=== PATIENT | male | born 1990 | race African-American/Black ===

== ENCOUNTER 2019-10-12 12:48 | Emergency (ER) | payer OTHER, MEDICAID, SELFPAY ==
[2019-10-12 13:10] VITALS: BP 156/77; PULSE 77; RESP 24; TEMP 36.5; O2SAT 99
[2019-10-12 15:13] LABS: Bacteria Urine None Seen
[2019-10-12 15:14] LABS: Appearance Urine UA SL CLOUDY; Bilirubin Urine UA NEGATIVE (NEGATIVE); Color Urine UA YELLOW; Glucose Urine UA NEGATIVE (Negative); Ketones Urine UA NEGATIVE (NEGATIVE); Leukocyte Esterase Urine UA 1+ (NEGATIVE); Nitrite Urine UA NEGATIVE (Negative); Occult Blood Urine UA 3+ (Negative); Protein Urine UA NEGATIVE (Negative); Specific Gravity Urine UA 1.015 (1.000-1.035); Urobilinogen Urine UA 0.2 E.U./dL (0.2)
[2019-10-12 15:20] LABS: Culture Indicated Urine Cult Not Indicated; RBC Urine 5-10/HPF (0-5/HPF); Squamous Epithelial Cell Urine 5-10 /HPF (0-5/HPF); WBC Urine 1-5/HPF (0-5/HPF)
--- NOTE | 2019-10-12 16:46 | ED_ITS ---
HPI - Male Genitourinary <CESAR Hernandez - Last Filed: 10/12/19 21:10> General Chief complaint: Urogenital-Male Stated complaint: blood in urine Time Seen by Provider: 10/12/19 13:34 Source: patient Mode of arrival: Ambulatory History of Present Illness HPI Narrative: 29yo male with a history of obesity, presents to the emergency department for blood in his urine that he noticed this morning. Patient states he noticed a blood clot on the tip of his penis and a strain of blood clots in the toilet this morning. Patient denies any trauma to the area, penile discharge, fevers, chills, difficulty urinary eating, dysuria, abdominal plain, flank pain, or any other concerns. Patient states that he has never had this problem before. He recently lost approximately 100 lb in the past year and has been exercising more frequently. Patient states that he does not want to wait here much longer in would like to just follow up with his primary care provider tomorrow versus have more testing today. Patient denies any further noticeable blood clots in his urine this time. Related Data Home Medications Medication Instructions Recorded Confirmed loratadine [Claritin] 10 mg PO QDAY PRN #0 06/28/17 10/12/19 meloxicam 15 mg PO DAILY PRN 10/12/19 10/12/19 Allergies Allergy/AdvReac Type Severity Reaction Status Date / Time No Known Drug Allergies Allergy Verified 10/12/19 13:14 Review of Systems <CESAR Hernandez - Last Filed: 10/12/19 21:10> Review of Systems Narrative: REVIEW OF SYSTEMS: GENERAL: Denies fever, chills, malaise, or wt. loss. HENT: No head trauma, sore throat, or dysphagia. CARDIOVASCULAR: No chest pain, palpitations, or orthopnea. RESPIRATORY: No shortness of breath or cough. GASTROINTESTINAL: Denies abdominal pain. GENITOURINARY: No flank pain, urinary incontinence, hesitancy, frequency, or dysuria. Reports hematuria, see HPI. MUSCULOSKELETAL: No pain, weakness, or trauma. INTEGUMENTARY: No rash, lesions, or pruritus. NEURO: No numbness, tingling, memory loss, confusion, or headaches. PSYCH: No behavior or mood changes. Patient History <CESAR Hernandez - Last Filed: 10/12/19 21:10> Medical History Obesity (Acute) Social History Smoking Status: Never smoker Smoking Status: Never smoker Exam <CESAR Hernandez - Last Filed: 10/12/19 21:10> Initial Vital Signs Initial Vital Signs: Vital Signs Temperature 97.7 F 10/12/19 13:10 Pulse Rate 77 10/12/19 13:10 Respiratory Rate 24 10/12/19 13:10 Blood Pressure 156/77 H 10/12/19 13:10 Pulse Oximetry 99 10/12/19 13:10 PHYSICAL EXAMINATION: GENERAL: Well groomed, alert, and cooperative. Answers questions promptly and appropriately. Vital signs noted. HENT: Normocephalic, atraumatic. Hearing intact. Oral mucosa is pink and moist. EYES: Conjunctiva pink, sclera white, no periorbital swelling. CARDIOVASCULAR: S1 and S2 sounds normal. Regular rate and rhythm, no murmurs, clicks, or bruits. No pedal edema. RESPIRATORY: Normal respiratory rate, trachea midline, airway patent. No stridor, nasal flaring or accessory muscle use. Lungs are clear in all nelson without wheeze, rhonchi, or crackles. GASTROINTESTINAL: Bowel sounds normoactive. Abdomen is soft and non-tender. No organomegaly, no palpable masses. GENITALURINARY: No flank tenderness. MUSCULOSKELETAL: Normal gait and coordination. Equal tone and mass bilaterally. EXTREMITIES: CMS intact, no pedal edema. SKIN: Warm, dry, soft, appropriate color for ethnicity. No lesions, rashes, or wounds to visualized areas. NEURO: Alert and Oriented X 3. Good coordination. No ataxia, or sensory deficits, or cognitive issues. PSYCH: Appropriate affect and mood. <Diandra Monzon MD - Last Filed: 10/30/19 18:08> Initial Vital Signs Initial Vital Signs: Vital Signs Temperature 97.7 F 10/12/19 13:10 Pulse Rate 77 10/12/19 13:10 Respiratory Rate 24 10/12/19 13:10 Blood Pressure 156/77 H 10/12/19 13:10 Pulse Oximetry 99 10/12/19 13:10 Course <CESAR Hernandez - Last Filed: 10/12/19 21:10> Course Course Narrative: Patient declined labs and further workup, states he would rather follow up with primary care provider tomorrow. Orders Ordered: ED Orders 10/12/19 15:10 Urinalysis and Microscopic Stat Vital Signs Vital signs: Vital Signs - 8 hr 10/12/19 13:10 Temperature 97.7 F Pulse Rate 77 Respiratory Rate 24 Blood Pressure 156/77 H Pulse Oximetry 99 <Diandra Monzon MD - Last Filed: 10/30/19 18:08> Orders Ordered: ED Orders 10/12/19 15:10 Urinalysis and Microscopic Stat Vital Signs Vital signs: Vital Signs - 8 hr 10/12/19 13:10 Temperature 97.7 F Pulse Rate 77 Respiratory Rate 24 Blood Pressure 156/77 H Pulse Oximetry 99 MDM - Male Genitourinary <CESAR Hernandez - Last Filed: 10/12/19 21:10> Medical Records Attestation: I reviewed the patient's medical records. Lab Data Attestation: I reviewed the patient's lab results. Labs: Lab Results 10/12/19 Range/Units 15:10 Urine Color Yellow Urine Appearance Sl cloudy Urine pH 6.0 (4.5-8.0) Ur Specific [place] 1.015 (1.000-1.035) Urine Protein Negative (Negative) Urine Glucose (UA) Negative (Negative) g/dL Urine Ketones Negative (NEGATIVE) Urine Occult Blood 3+ H (Negative) Urine Nitrate Negative (Negative) Urine Bilirubin Negative (NEGATIVE) Urine Urobilinogen 0.2 (0.2) E.U./dL Ur Leukocyte Esterase 1+ H (NEGATIVE) Urine RBC 5-10/hpf H (0-5/HPF) Urine WBC 1-5/hpf (0-5/HPF) Ur Squamous Epith Cells 5-10 /hpf H (0-5/HPF) Urine Bacteria None seen (None) Ur Culture Indicated? Cult not indicated MDM Narrative Medical decision making narrative: 29-year-old male presenting to the emergency department for an episode of hematuria with clots. Urinalysis is positive for blood. I discussed that laboratory work is advised to check for renal function, depending on laboratory results imaging may be needed. Patient declined at this time stating that he would rather follow up with his primary care provider tomorrow for further testing as he does not want to waiting longer. We discussed return precautions for new or worsening symptoms such as inability to urinate, pain, excessive bleeding, or any other concerns. He agreed to plan of care verbalized understanding. <Diandra Monzon MD - Last Filed: 10/30/19 18:08> Lab Data Labs: Lab Results 10/12/19 Range/Units 15:10 Urine Color Yellow Urine Appearance Sl cloudy Urine pH 6.0 (4.5-8.0) Ur Specific [place] 1.015 (1.000-1.035) Urine Protein Negative (Negative) Urine Glucose (UA) Negative (Negative) g/dL Urine Ketones Negative (NEGATIVE) Urine Occult Blood 3+ H (Negative) Urine Nitrate Negative (Negative) Urine Bilirubin Negative (NEGATIVE) Urine Urobilinogen 0.2 (0.2) E.U./dL Ur Leukocyte Esterase 1+ H (NEGATIVE) Urine RBC 5-10/hpf H (0-5/HPF) Urine WBC 1-5/hpf (0-5/HPF) Ur Squamous Epith Cells 5-10 /hpf H (0-5/HPF) Urine Bacteria None seen (None) Ur Culture Indicated? Cult not indicated Discharge Plan Departure Patient Disposition: Home Clinical Impression: Hematuria Discharge Date/Time: 10/12/19 15:54 Instructions: DI for Hematuria Activity Restrictions/Additional Instructions: Thank you for entrusting me with your care today. As discussed, there is blood in your urine. I am unsure the exact cause of this. You declined laboratory work today in the ED but I do recommend calling your primary care provider and discussing possible laboratory blood work as scheduled tomorrow. I have also referred you to urologist, you can follow-up with them as well if they can see you sooner. See information listed below. Return to the emergency department any new or worsening symptoms such as pain, syncope, weakness, flank pain, vomiting, dizziness, or any other concerns. Prescriptions: No Action loratadine [Claritin] 10 MG tablet 10 mg PO QDAY PRN (Reason: allergies) Qty: 0 RF: 0 meloxicam 15 mg tablet 15 mg PO DAILY PRN (Reason: Pain (Scale Score 7-10)) RF: 0 Referrals: Miky Trammell MD [Non-Staff] - <Diandra Monzon MD - Last Filed: 10/30/19 18:08> Cosign ED Attending Cosignature Attestation: I was immediately available in the department for consultation throughout this patient's visit. I agree with documentation as above. Diandra Monzon MD
== END 2019-10-12 15:54 | disposition home or self-care (01) ==
PROVIDERS: Emergency Medicine; Emergency Provider Nurse Practitioner
DX: R31.0 Gross hematuria (principal); E66.9 Obesity, unspecified
CPT/HCPCS: 81001; 99281; 99282

== ENCOUNTER 2020-04-10 21:47 | Emergency (ER) | payer OTHER, MEDICAID, SELFPAY ==
[2020-04-10 21:52] VITALS: BP 174/104; PULSE 89; RESP 22; TEMP 36.9; O2SAT 95
--- NOTE | 2020-04-10 22:06 | ED_ITS ---
HPI - Extremity Injury (Lower) General Chief Complaint: Extremity Injury, Lower Stated Complaint: Plantir facitis flair up Time Seen by Provider: 04/10/20 22:03 Source: patient Mode of arrival: Ambulatory History of Present Illness HPI Narrative: 29-year-old gentleman with morbid obesity and an 8 year history of intermittent episodes of plantar fasciitis presents with worsening right foot pain. He notes that this episode started approximately 2 and half weeks ago after a hike. He noticed pain starting approximately [facility] through the hike and increasing. He has been using ice, rolling, stretching and has appropriate issues with enough padding under is heal to try and alleviate the issues. It is continuing to get worse. In the past he has had some success in working with Dr. Parish, podiatry. He states there is no overt trauma, falling or twisting to suggest any type of bony injury. He describes no fevers, cough, cold Vomiting, diarrhea, swelling, ulceration. Related Data Home Medications Medication Instructions Recorded Confirmed loratadine [Claritin] 10 mg PO QDAY PRN #0 06/28/17 10/12/19 meloxicam 15 mg PO DAILY PRN 10/12/19 10/12/19 Allergies Allergy/AdvReac Type Severity Reaction Status Date / Time No Known Drug Allergies Allergy Verified 10/12/19 13:14 Review of Systems Review of Systems ROS Unobtainable: All systems reviewed & are unremarkable except as noted in HPI and below Patient History Medical History (Updated 04/10/20 @ 23:04 by Diandra Monzon MD) Obesity Plantar fasciitis Social History Smoking Status: Never smoker Smoking Status: Never smoker Exam Narrative Exam Narrative: General: Alert appropriate in no acute distress Respiratory: Able to speak in full sentences, no obvious respiratory distress Skin: No obvious rashes, warm and dry Neurologic: Grossly intact no obvious asymmetries or abnormalities Psych, appropriate insight and affect, cooperative Extremity: Significant tenderness with pressure to the bottom of the right heel and with flexion of the foot. No edema and no ulceration Initial Vital Signs Initial Vital Signs: Vital Signs Temperature 98.4 F 04/10/20 21:52 Pulse Rate 89 04/10/20 21:52 Respiratory Rate 22 04/10/20 21:52 Blood Pressure 174/104 H 04/10/20 21:52 Pulse Oximetry 95 12/27/20 21:52 Procedures Orthopedic Splinting/Casting Right foot posterior splint: Side: right Lower Extremity Injury Location: foot Lower Extremity Immobilizer: posterior splint Other Orthopedic Equipment: other (Nighttime posterior splint for plantar fasciitis to keep the foot in flexion while asleep) Post splinting neuro exam: intact Post splinting vascular exam: intact Placed by: Provider Course Orders Ordered: Discontinued Medications Ketorolac Tromethamine (Ketorolac 60 Mg/2 Ml Vial) 30 mg IM NOW ONE Stop: 04/10/20 22:34 Last Admin: 04/10/20 22:55 Dose: 30 mg Documented by: Vital Signs Vital signs: Vital Signs - 8 hr 04/10/20 21:52 Temperature 98.4 F Pulse Rate 89 Respiratory Rate 22 Blood Pressure 174/104 H Pulse Oximetry 95 MDM - Extremity Injury (Lower) MDM Narrative Medical decision making narrative: 29-year-old gentleman with recurrent plantar fasciitis. Given a shot of Toradol at his request and a posterior splint is created to help with maintaining flexion while he is sleeping. He is referred back to Dr. Parish, podiatry for definitive care. He is safe for home discharge Discharge Plan Departure Patient Disposition: Home Clinical Impression: Plantar fasciitis Instructions: DI for Plantar Fasciitis Activity Restrictions/Additional Instructions: Thank you for coming in today Plantar fasciitis can be so frustrating to treat Using shoes that have very soft cushioning under the heel, ice, stretching and nonsteroidals are the mainstay of treatment. Using 400 mg of ibuprofen (2 [id number] pills) and 1 Tylenol every 6 hours can be very helpful in controlling pain. I have created a splint that you can use while sleeping. This helps your foot heel in the correct position so that the 1st step of the day does not break up all of the healing on the bottom of your foot I definitely encourage you to follow-up with Dr. Parish, podiatry, for definitive care. I wish you the best Prescriptions: No Action loratadine [Claritin] 10 MG tablet 10 mg PO QDAY PRN (Reason: allergies) Qty: 0 RF: 0 meloxicam 15 mg tablet 15 mg PO DAILY PRN (Reason: Pain (Scale Score 7-10)) RF: 0
[2020-04-10] MEDS: KETOROLAC 60 MG/2 ML VIAL 30 MG IM (22:55)
[2020-04-10 23:23] VITALS: TEMP 36.9
[2020-04-10 23:25] VITALS: BP 174/66; PULSE 76; RESP 22; O2SAT 98
== END 2020-04-10 23:23 | disposition home or self-care (01) ==
PROVIDERS: Emergency Provider Emergency Medicine
DX: M72.2 Plantar fascial fibromatosis (principal); E66.01 Morbid (severe) obesity due to excess calories
CPT/HCPCS: 96372; 99281; 99283; J1885

== ENCOUNTER 2023-03-29 13:45 | Outpatient (RCR) | payer OTHER, SELFPAY ==
--- NOTE | 2023-02-18 16:40 | PT.OIE ---
Current Diagnoses Other specified disorders of bone, upper arm (02/18/23) Strain of muscle, fascia and tendon of other parts of biceps, unspecified arm, initial encounter (02/18/23) Past Medical History (Last Updated 04/10/20 @ 23:04 by Diandra Monzon MD) Obesity Plantar fasciitis Visit Care Team Role Provider Type Eduar Chen DO Family Provider Non-Staff Primary Care Provider Specialty: Internal Medicine Address: [address] [facility], [place], [address] Email: Froy Alejandre MD Attending Provider Non-Staff Referring Provider Specialty: Orthopedic Surgery Address: [address] [facility] , [place], [address] Email: Physical Therapy Initial Evaluation PT-OP-A Visit Information Start: 02/18/23 15:37 Freq: Status: Active Protocol: Document 02/18/23 15:38 NM (Rec: 02/18/23 16:38 NM [id number]) Out-Patient Physical Therapy Visit Information Visit Information Visit Type Initial Evaluation Visit Start Time 13:45 Visit Stop Time 14:30 Total Visit Minutes 45 Visit Number 1 Evaluation Information Evaluation Date 02/18/23 PT-OP-B Current Condition Start: 02/18/23 15:37 Freq: Status: Active Protocol: Document 02/18/23 15:38 NM (Rec: 02/18/23 16:38 NM [id number]) Current Condition History of Current Condition Onset Date 12/2022 Current Complaints L arm weakness, pain with pushing/pulling, supination, kinesophobia History of Current Condition Pt was lifting in the gym at the time of the injury. He reports performing a 250# bicep curl with his L arm, which was too heavy causing his L elbow to forcefully straighten while holding the weight. The normal weight he can perform for a bicep curl is 230#. At the time of the injury, he felt a pop then a sharp pain in his L elbow; there was bruising around the L antecubital area. 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 He is currently unable to carry more than 10# or lift >10#. Prior Treatments and Tests Pt received a MRI indicating a near complete tear of his L biceps tendon near the elbow. He was referred by Dr. Alejandre. At this time, the pt is not planning on undergoing surgery to fix the L biceps tendon. Future Testing and Treatments Planned Pt is planning to follow up with another doctor for another opinion about surgery. 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 Functional Limitations- Recreation/ Pt is unable to lift weights Hobbies currently due to pain and weakness PT-OP-C Subjective Start: 02/18/23 15:37 Freq: Status: Active Protocol: Document 02/18/23 15:38 NM (Rec: 02/18/23 16:38 NM [id number]) Patient Questionnaires Quick Dash- Upper Extremity Quick Dash UE Impairment 40 to 59% Impaired (Score 40- 59) OP-PT Pain Assessment Pain Assessment Grid Paper Pain Assessment Grid Completed Yes Location L elbow Pain Location Details Anterior elbow, near the insertion of the biceps tendon Intensity 2 Scale Used Numeric (0 - 10) Description Aching,With Movement Frequency Occasional Pain Duration few seconds Pain Aggravating Factors Exercise,Lifting Other Pain Aggravating Factors Lifting >10# Pain Alleviating Factors None Patient Stated Pain Goal to lift weights and smaller objects without pain in L elbow Home Pain Medication Use Pain Medications Used No Pain Behaviors Pain Behaviors Guarding Comments Pain Comments Pt reports his worst pain was at the time of the injury (10/ 10). His baseline is 0-2/10 unless he attempts to lift anything. Current pain is 2/10 . PT-OP-J Posture/Palpation/Skin Start: 02/18/23 15:37 Freq: Status: Active Protocol: Document 02/18/23 15:38 NM (Rec: 02/18/23 16:38 NM [id number]) Posture Evaluation Position Standing Evaluation View Lateral Head/C-Spine Posture Flexed L-Spine Posture Neutral Shoulder Posture (L) Rounded,(R) Rounded Arm Posture (L) Externally Rotated,(R) Externally Rotated Palpation Assessment Location L elbow Palpation Location Antecubital fossa, near insertion of biceps tendon and flexor wad Palpation Findings Muscle Guarding,Tenderness Skin Assessment Other Assessments Skin Assessment Comments Pt exhibits some bruising in L antecubital fossa area PT-OP-K Range of Motion Start: 02/18/23 15:37 Freq: Status: Active Protocol: Document 02/18/23 15:38 NM (Rec: 02/18/23 16:38 NM [id number]) Shoulder Goniometric Range of Motion Shoulder Left Shoulder ROM WFL No Testing Position Supine Flexion 150 Abduction 150 External Rotation at 90 degrees 30 Abduction Internal Rotation 80 Right Shoulder ROM WFL No Testing Position Supine Flexion 180 Abduction 150 External Rotation at 90 degrees 65 Abduction Internal Rotation 80 Elbow/Forearm Range of Motion Elbow/Forearm Left Elbow/Forearm ROM WFL No ROM Testing Position Supine Elbow Flexion (degrees) 125 Elbow Extension (degrees) 20 Pronation (degrees) 80 Supination (degrees) 35 Comments Pain only with supination, unable to tolerate overpressure Right Elbow/Forearm ROM WFL No ROM Testing Position Supine Elbow Flexion (degrees) 120 Elbow Extension (degrees) 30 Pronation (degrees) 80 Supination (degrees) 40 Wrist Goniometric Range of Motion Wrist Left Wrist ROM WFL Yes Right Wrist ROM WFL Yes PT-OP-L Special Tests Start: 02/18/23 15:37 Freq: Status: Active Protocol: Document 02/18/23 15:38 NM (Rec: 02/18/23 16:38 NM [id number]) Special Tests Shoulder Special Tests Push-Pull Test Results Positive Comments Pain with pulling Elbow Special Tests Speed's Biceps Test Results Postive Comments Discomfort at shoulder, pain in L elbow Yergason's Biceps Test Results Positive Comments Unable to palpate insertion of biceps tendon during test PT-OP-M Strength Start: 02/18/23 15:37 Freq: Status: Active Protocol: Document 02/18/23 15:38 NM (Rec: 02/18/23 16:38 NM [id number]) Shoulder Strength Shoulder Manual Muscle Testing Left Flexion 4- Good- Extension 5 Normal Abduction (C5) 4 Good Adduction 5 Normal External Rotation 4- Good- Internal Rotation 4 Good Horizontal Abduction 4 Good Horizontal Adduction 5 Normal Right Flexion 5 Normal Extension 5 Normal Abduction (C5) 5 Normal Adduction 5 Normal External Rotation 5 Normal Internal Rotation 5 Normal Horizontal Abduction 5 Normal Horizontal Adduction 5 Normal Elbow/Forearm Strength Elbow and Forearm Manual Muscle Testing Left Flexion (C6) 4 Good Extension (C7) 5 Normal Pronation 4+ Good+ Supination 3+ Fair+ Comments Pain with resisted supination Right Flexion (C6) 5 Normal Extension (C7) 5 Normal Pronation 5 Normal Supination 5 Normal Hand Manager Wind/Pinch Strength Hand Dominance Hand Dominance Right PT-OP-Q Treatments Start: 02/18/23 15:37 Freq: Status: Active Protocol: Document 02/18/23 15:38 NM (Rec: 02/18/23 16:38 NM [id number]) Therapeutic Exercises Sitting Exercises Isometric elbow flex + radial deviation Side left Resistance isometric 50-75% of max without pain Equipment Used table Reps/Minutes 10x2, 5 second hold Isometric supination Side left Resistance isometric 50-75% of max without pain Equipment Used hand Reps/Minutes 10x2, isometric hold 5 seconds Isometric elbow flexion Side left Resistance isometric 50-75% of max without pain Equipment Used table Reps/Minutes 10x2, isometric hold 5 seconds Standing Exercises Shoulder flexion isometric Side left Resistance isometric - 50-75% of max without pain Equipment Used wall Reps/Minutes 10x2, 5 second isometric hold 5 seconds PT-OP-T Assessment and Plan Start: 02/18/23 15:37 Freq: Status: Active Protocol: Document 02/18/23 15:38 NM (Rec: 02/18/23 16:38 NM [id number]) Physical Therapy Assessment Rehab Potential Rehabilitation Potential Good Evaluation Complexity Number of Personal Factors/Comorbidities 1-2 Number of Body Systems Impaired 1-2 Clinical Presentation at Evaluation Evolving Impairments Impairments Activity Tolerance,Functional Activities,Pain,Posture,ROM, Soft Tissue Mobility,Strength Goals Five Impairment Function Short Term Goal (STG) Pt will be able to push at least 30 pounds with 2/10 or less pain in order to perform certain aspects of his job and return to the weight room. STG Duration 03/11 Nursing Home Goal (LTG) Pt will be able to push at least 60 pounds with 2/10 or less pain in order to perform certain aspects of his job and return to lifting. LTG Duration 04/08 Four Impairment Strength, function, pain Short Term Goal (STG) Pt will be able to lift at least 15 pounds using only his LUE with 2/10 or less pain in order to perform certain aspects of his job. STG Duration 03/11 Citizenship Instructor Goal (LTG) Pt will be able to lift at least 25 pounds using only his LUE with 2/10 or less pain in order to perform certain aspects of his job. LTG Duration 04/08 Three Impairment Strength Short Term Goal (STG) Pt will improve L shoulder flexion and external rotation strength to at least 4/5 in order to demonstrate better shoulder strength. STG Duration 03/11 Citizenship Instructor Goal (LTG) Pt will improve L shoulder flexion and external rotation strength to at least 4+/5 without pain in order to demonstrate overall improvement in shoulder strength for lifting and overhead activities. LTG Duration 04/08 Two Impairment Strength Impairment Current supination strength: 3 +/5 Short Term Goal (STG) Pt will improve supination strength to 4/5 without pain to indicate improved elbow strength for functional activities. STG Duration 03/11 Citizenship Instructor Goal (LTG) Pt will improve L elbow supination strength to at least 4+/5 without pain to demonstrate improved elbow strength during functional activities and to be able to perform household tasks without pain. LTG Duration 04/08 One Impairment Pain and Function Impairment Current QuickDASH 56.8% Short Term Goal (STG) Pt will improve the score of the QuickDASH by 10 points to demo improved function and quality of life. STG Duration 03/11 Citizenship Instructor Goal (LTG) Pt will improve the score of the QuickDASH by 20 points to demo improved LUE function and quality of life. LTG Duration 04/08 Assessment Summary Assessment Pt is a 32 y.o. male presenting with L anterior elbow pain after a heavy weight, forced eccentric contraction of the biceps brachii during a bicep curl. Currently, he is most limited by poor range of motion and weakness in his L elbow and shoulder, particularly during supination; he is also unable to lift more than 10 pounds without pain. He presents with mild swelling and bruising near the L antecubital fossa near the insertion of the biceps tendon. Pt is currently seeking to address treating his injury conservatively, but is seeking a second opinion about possible surgical repair . Pt would benefit from a progressive tendon loading program to begin strengthening his L elbow and shoulder. Pt is a good candidate for skilled physical therapy to address impairments in strength, ROM, kinesophobia, pain management, and for return to unrestricted work activities and hobbies. Physical Therapy Plan Frequency and Duration Frequency of Treatment 2x/Week Duration of treatment (weeks) 8 Plan of Care Start Date 02/18/23 Plan of Care End Date 04/08/23 Therapeutic Interventions Therapeutic Interventions Coordination Training,Home Exercise Program,Joint Mobilizations,Manual Therapy, Neuromuscular Re-education, Patient/Caregiver Education, Soft Tissue Mobilization, Taping,Therapeutic Activities, Therapeutic Exercises Modalities Cold Pack/Ice Massage,Electric Stimulation,Hot Packs, Ultrasound Other Referrals/Consults Referrals/Consults Recommended Follow up with surgeon Next Visit Focus/Plan Next Note Type Treatment Note Next Visit Plan Begin gentle isometrics for shoulder, elbow. No stretching at this time.
--- NOTE | 2023-02-18 16:44 | PT.OPPOC ---
Addendum entered and electronically signed by Miriam Abbasi, [place] 02/20/23 08:50: POC manually faxed to Dr. Alejandre 02/20/23. Original Note: Physical, Occupational & Speech Therapy At [facility] Current Diagnoses Other specified disorders of bone, upper arm (02/18/23) Strain of muscle, fascia and tendon of other parts of biceps, unspecified arm, initial encounter (02/18/23) Visit Care Team Role Provider Type Eduar Chen DO Family Provider Non-Staff Primary Care Provider Specialty: Internal Medicine Address: [address] [facility], [place], [address] Email: Froy Alejandre MD Attending Provider Non-Staff Referring Provider Specialty: Orthopedic Surgery Address: [address] [place] [address] , [place], [address] Email: Plan Of Care PT-OP-T Assessment and Plan Start: 02/18/23 15:37 Freq: Status: Active Protocol: Document 02/18/23 15:38 NM (Rec: 02/18/23 16:38 NM [id number]) Physical Therapy Assessment Rehab Potential Rehabilitation Potential Good Evaluation Complexity Number of Personal Factors/Comorbidities 1-2 Number of Body Systems Impaired 1-2 Clinical Presentation at Evaluation Evolving Impairments Impairments Activity Tolerance,Functional Activities,Pain,Posture,ROM, Soft Tissue Mobility,Strength Goals Five Impairment Function Short Term Goal (STG) Pt will be able to push at least 30 pounds with 2/10 or less pain in order to perform certain aspects of his job and return to the weight room. STG Duration 03/11 Electronic Test Technician Goal (LTG) Pt will be able to push at least 60 pounds with 2/10 or less pain in order to perform certain aspects of his job and return to lifting. LTG Duration 04/08 Four Impairment Strength, function, pain Short Term Goal (STG) Pt will be able to lift at least 15 pounds using only his LUE with 2/10 or less pain in order to perform certain aspects of his job. STG Duration 03/11 Electronic Test Technician Goal (LTG) Pt will be able to lift at least 25 pounds using only his LUE with 2/10 or less pain in order to perform certain aspects of his job. LTG Duration 04/08 Three Impairment Strength Short Term Goal (STG) Pt will improve L shoulder flexion and external rotation strength to at least 4/5 in order to demonstrate better shoulder strength. STG Duration 03/11 Group Home Goal (LTG) Pt will improve L shoulder flexion and external rotation strength to at least 4+/5 without pain in order to demonstrate overall improvement in shoulder strength for lifting and overhead activities. LTG Duration 04/08 Two Impairment Strength Impairment Current supination strength: 3 +/5 Short Term Goal (STG) Pt will improve supination strength to 4/5 without pain to indicate improved elbow strength for functional activities. STG Duration 03/11 Electronic Test Technician Goal (LTG) Pt will improve L elbow supination strength to at least 4+/5 without pain to demonstrate improved elbow strength during functional activities and to be able to perform household tasks without pain. LTG Duration 04/08 One Impairment Pain and Function Impairment Current QuickDASH 56.8% Short Term Goal (STG) Pt will improve the score of the QuickDASH by 10 points to demo improved function and quality of life. STG Duration 03/11 Group Home Goal (LTG) Pt will improve the score of the QuickDASH by 20 points to demo improved LUE function and quality of life. LTG Duration 04/08 Assessment Summary Assessment Pt is a 32 y.o. male presenting with L anterior elbow pain after a heavy weight, forced eccentric contraction of the biceps brachii during a bicep curl. Currently, he is most limited by poor range of motion and weakness in his L elbow and shoulder, particularly during supination; he is also unable to lift more than 10 pounds without pain. He presents with mild swelling and bruising near the L antecubital fossa near the insertion of the biceps tendon. Pt is currently seeking to address treating his injury conservatively, but is seeking a second opinion about possible surgical repair . Pt would benefit from a progressive tendon loading program to begin strengthening his L elbow and shoulder. Pt is a good candidate for skilled physical therapy to address impairments in strength, ROM, kinesophobia, pain management, and for return to unrestricted work activities and hobbies. Physical Therapy Plan Frequency and Duration Frequency of Treatment 2x/Week Duration of treatment (weeks) 8 Plan of Care Start Date 02/18/23 Plan of Care End Date 04/08/23 Therapeutic Interventions Therapeutic Interventions Coordination Training,Home Exercise Program,Joint Mobilizations,Manual Therapy, Neuromuscular Re-education, Patient/Caregiver Education, Soft Tissue Mobilization, Taping,Therapeutic Activities, Therapeutic Exercises Modalities Cold Pack/Ice Massage,Electric Stimulation,Hot Packs, Ultrasound Other Referrals/Consults Referrals/Consults Recommended Follow up with surgeon Next Visit Focus/Plan Next Note Type Treatment Note Next Visit Plan Begin gentle isometrics for shoulder, elbow. No stretching at this time. Plan of Care Dates Plan of Care Start Date 02/18/23 Plan of Care End Date 04/08/23 Electronically Signed by: Miriam Abbasi, PT 02/18/23 [id number] If you are in agreement with this Plan of Care, please return a signed and dated copy. I have reviewed this Plan of Care and certify that the skilled therapy services above are required to meet the patient?s needs. Physician Signature Date Printed Name and Credentials Clinical Instructor Signature Printed Name and Credentials
--- NOTE | 2023-02-19 16:51 | PT.OIE ---
Current Diagnoses Other specified disorders of bone, upper arm (02/18/23) Strain of muscle, fascia and tendon of other parts of biceps, unspecified arm, initial encounter (02/18/23) Past Medical History (Last Updated 04/10/20 @ 23:04 by Diandra Monzon MD) Obesity Plantar fasciitis Visit Care Team Role Provider Type Eduar Chen DO Family Provider Non-Staff Primary Care Provider Specialty: Internal Medicine Address: [address] [facility], [place], [address] Email: Froy Alejandre MD Attending Provider Non-Staff Referring Provider Specialty: Orthopedic Surgery Address: [address] , [place], [address] Email: Physical Therapy Initial Evaluation PT-OP-A Visit Information Start: 02/18/23 15:37 Freq: Status: Active Protocol: Document 02/18/23 15:38 NM (Rec: 02/18/23 16:38 NM [id number]) Out-Patient Physical Therapy Visit Information Visit Information Visit Type Initial Evaluation Visit Start Time 13:45 Visit Stop Time 14:30 Total Visit Minutes 45 Visit Number 1 Evaluation Information Evaluation Date 02/18/23 PT-OP-B Current Condition Start: 02/18/23 15:37 Freq: Status: Active Protocol: Document 02/18/23 15:38 NM (Rec: 02/18/23 16:38 NM [id number]) Current Condition History of Current Condition Onset Date 12/2022 Current Complaints L arm weakness, pain with pushing/pulling, supination, kinesophobia History of Current Condition Pt was lifting in the gym at the time of the injury. He reports performing a 50# bicep curl with his L arm, which was too heavy causing his L elbow to forcefully straighten while holding the weight. The normal weight he can perform for a bicep curl is 30#. At the time of the injury, he felt a pop then a sharp pain in his L elbow; there was bruising around the L antecubital area. 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 He is currently unable to carry more than 10# or lift >10#. Prior Treatments and Tests Pt received a MRI indicating a near complete tear of his L biceps tendon near the elbow. He was referred by Dr. Alejandre. At this time, the pt is not planning on undergoing surgery to fix the L biceps tendon. Future Testing and Treatments Planned Pt is planning to follow up with another doctor for another opinion about surgery. 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 Functional Limitations- Recreation/ Pt is unable to lift weights Hobbies currently due to pain and weakness PT-OP-C Subjective Start: 02/18/23 15:37 Freq: Status: Active Protocol: Document 02/18/23 15:38 NM (Rec: 02/18/23 16:38 NM [id number]) Patient Questionnaires Quick Dash- Upper Extremity Quick Dash UE Impairment 40 to 59% Impaired (Score 40- 59) OP-PT Pain Assessment Pain Assessment Grid Paper Pain Assessment Grid Completed Yes Location L elbow Pain Location Details Anterior elbow, near the insertion of the biceps tendon Intensity 2 Scale Used Numeric (0 - 10) Description Aching,With Movement Frequency Occasional Pain Duration few seconds Pain Aggravating Factors Exercise,Lifting Other Pain Aggravating Factors Lifting >10# Pain Alleviating Factors None Patient Stated Pain Goal to lift weights and smaller objects without pain in L elbow Home Pain Medication Use Pain Medications Used No Pain Behaviors Pain Behaviors Guarding Comments Pain Comments Pt reports his worst pain was at the time of the injury (10/ 10). His baseline is 0-2/10 unless he attempts to lift anything. Current pain is 2/10 . PT-OP-J Posture/Palpation/Skin Start: 02/18/23 15:37 Freq: Status: Active Protocol: Document 02/18/23 15:38 NM (Rec: 02/18/23 16:38 NM [id number]) Posture Evaluation Position Standing Evaluation View Lateral Head/C-Spine Posture Flexed L-Spine Posture Neutral Shoulder Posture (L) Rounded,(R) Rounded Arm Posture (L) Externally Rotated,(R) Externally Rotated Palpation Assessment Location L elbow Palpation Location Antecubital fossa, near insertion of biceps tendon and flexor wad Palpation Findings Muscle Guarding,Tenderness Skin Assessment Other Assessments Skin Assessment Comments Pt exhibits some bruising in L antecubital fossa area PT-OP-K Range of Motion Start: 02/18/23 15:37 Freq: Status: Active Protocol: Document 02/18/23 15:38 NM (Rec: 02/18/23 16:38 NM [id number]) Shoulder Goniometric Range of Motion Shoulder Left Shoulder ROM WFL No Testing Position Supine Flexion 150 Abduction 150 External Rotation at 90 degrees 30 Abduction Internal Rotation 80 Right Shoulder ROM WFL No Testing Position Supine Flexion 180 Abduction 150 External Rotation at 90 degrees 65 Abduction Internal Rotation 80 Elbow/Forearm Range of Motion Elbow/Forearm Left Elbow/Forearm ROM WFL No ROM Testing Position Supine Elbow Flexion (degrees) 125 Elbow Extension (degrees) 20 Pronation (degrees) 80 Supination (degrees) 35 Comments Pain only with supination, unable to tolerate overpressure Right Elbow/Forearm ROM WFL No ROM Testing Position Supine Elbow Flexion (degrees) 120 Elbow Extension (degrees) 30 Pronation (degrees) 80 Supination (degrees) 40 Wrist Goniometric Range of Motion Wrist Left Wrist ROM WFL Yes Right Wrist ROM WFL Yes PT-OP-L Special Tests Start: 02/18/23 15:37 Freq: Status: Active Protocol: Document 02/18/23 15:38 NM (Rec: 02/18/23 16:38 NM [id number]) Special Tests Elbow Special Tests Speed's Biceps Test Results Positive Comments Discomfort at shoulder, pain in L elbow Yergason's Biceps Test Results Positive Comments Pain with resisted supination at insertion of biceps tendon during test Hook Test Test Results Positive Comments Unable to hook distal biceps tendon but able to palpate a small amount PT-OP-M Strength Start: 02/18/23 15:37 Freq: Status: Active Protocol: Document 02/18/23 15:38 NM (Rec: 02/18/23 16:38 NM [id number]) Shoulder Strength Shoulder Manual Muscle Testing Left Flexion 4- Good- Extension 5 Normal Abduction (C5) 4 Good Adduction 5 Normal External Rotation 4- Good- Internal Rotation 4 Good Horizontal Abduction 4 Good Horizontal Adduction 5 Normal Right Flexion 5 Normal Extension 5 Normal Abduction (C5) 5 Normal Adduction 5 Normal External Rotation 5 Normal Internal Rotation 5 Normal Horizontal Abduction 5 Normal Horizontal Adduction 5 Normal Elbow/Forearm Strength Elbow and Forearm Manual Muscle Testing Left Flexion (C6) 4 Good Extension (C7) 5 Normal Pronation 4+ Good+ Supination 3+ Fair+ Comments Pain with resisted supination Right Flexion (C6) 5 Normal Extension (C7) 5 Normal Pronation 5 Normal Supination 5 Normal Hand Draw Hand/Pinch Strength Hand Dominance Hand Dominance Right PT-OP-Q Treatments Start: 02/18/23 15:37 Freq: Status: Active Protocol: Document 02/18/23 15:38 NM (Rec: 02/18/23 16:38 NM [id number]) Therapeutic Exercises Sitting Exercises Isometric elbow flex + radial deviation Side left Resistance isometric 50-75% of max without pain Equipment Used table Reps/Minutes 10x2, 5 second hold Isometric supination Side left Resistance isometric 50-75% of max without pain Equipment Used hand Reps/Minutes 10x2, isometric hold 5 seconds Isometric elbow flexion Side left Resistance isometric 50-75% of max without pain Equipment Used table Reps/Minutes 10x2, isometric hold 5 seconds Standing Exercises Shoulder flexion isometric Side left Resistance isometric - 50-75% of max without pain Equipment Used wall Reps/Minutes 10x2, 5 second isometric hold 5 seconds PT-OP-T Assessment and Plan Start: 02/18/23 15:37 Freq: Status: Active Protocol: Document 02/18/23 15:38 NM (Rec: 02/18/23 16:38 NM [id number]) Physical Therapy Assessment Rehab Potential Rehabilitation Potential Good Evaluation Complexity Number of Personal Factors/Comorbidities 1-2 Number of Body Systems Impaired 1-2 Clinical Presentation at Evaluation Evolving Impairments Impairments Activity Tolerance,Functional Activities,Pain,Posture,ROM, Soft Tissue Mobility,Strength Goals Five Impairment Function Short Term Goal (STG) Pt will be able to push at least 30 pounds with 2/10 or less pain in order to perform certain aspects of his job and return to the weight room. STG Duration 03/11 Chcf Goal (LTG) Pt will be able to push at least 60 pounds with 2/10 or less pain in order to perform certain aspects of his job and return to lifting. LTG Duration 04/08 Four Impairment Strength, function, pain Short Term Goal (STG) Pt will be able to lift at least 15 pounds using only his LUE with 2/10 or less pain in order to perform certain aspects of his job. STG Duration 03/11 Aircraft Sheet Metal Mechanic Goal (LTG) Pt will be able to lift at least 25 pounds using only his LUE with 2/10 or less pain in order to perform certain aspects of his job. LTG Duration 04/08 Three Impairment Strength Short Term Goal (STG) Pt will improve L shoulder flexion and external rotation strength to at least 4/5 in order to demonstrate better shoulder strength. STG Duration 03/11 Aircraft Sheet Metal Mechanic Goal (LTG) Pt will improve L shoulder flexion and external rotation strength to at least 4+/5 without pain in order to demonstrate overall improvement in shoulder strength for lifting and overhead activities. LTG Duration 04/08 Two Impairment Strength Impairment Current supination strength: 3 +/5 Short Term Goal (STG) Pt will improve supination strength to 4/5 without pain to indicate improved elbow strength for functional activities. STG Duration 03/11 Aircraft Sheet Metal Mechanic Goal (LTG) Pt will improve L elbow supination strength to at least 4+/5 without pain to demonstrate improved elbow strength during functional activities and to be able to perform household tasks without pain. LTG Duration 04/08 One Impairment Pain and Function Impairment Current QuickDASH 56.8% Short Term Goal (STG) Pt will improve the score of the QuickDASH by 10 points to demo improved function and quality of life. STG Duration 03/11 Aircraft Sheet Metal Mechanic Goal (LTG) Pt will improve the score of the QuickDASH by 20 points to demo improved LUE function and quality of life. LTG Duration 04/08 Assessment Summary Assessment Pt is a 32 y.o. male presenting with L anterior elbow pain after a heavy weight, forced eccentric contraction of the biceps brachii during a bicep curl. Currently, he is most limited by poor range of motion and weakness in his L elbow and shoulder, particularly during supination; he is also unable to lift more than 10 pounds without pain. He presents with mild swelling and bruising near the L antecubital fossa near the insertion of the biceps tendon. Pt is currently seeking to address treating his injury conservatively, but is seeking a second opinion about possible surgical repair . Pt would benefit from a progressive tendon loading program to begin strengthening his L elbow and shoulder. Pt is a good candidate for skilled physical therapy to address impairments in strength, ROM, kinesophobia, pain management, and for return to unrestricted work activities and hobbies. Physical Therapy Plan Frequency and Duration Frequency of Treatment 2x/Week Duration of treatment (weeks) 8 Plan of Care Start Date 02/18/23 Plan of Care End Date 04/08/23 Therapeutic Interventions Therapeutic Interventions Coordination Training,Home Exercise Program,Joint Mobilizations,Manual Therapy, Neuromuscular Re-education, Patient/Caregiver Education, Soft Tissue Mobilization, Taping,Therapeutic Activities, Therapeutic Exercises Modalities Cold Pack/Ice Massage,Electric Stimulation,Hot Packs, Ultrasound Other Referrals/Consults Referrals/Consults Recommended Follow up with surgeon Next Visit Focus/Plan Next Note Type Treatment Note Next Visit Plan Begin gentle isometrics for shoulder, elbow. No stretching at this time.
--- NOTE | 2023-02-22 14:14 | PT.OTN ---
Current Diagnoses Other specified disorders of bone, upper arm (02/22/23) Strain of muscle, fascia and tendon of other parts of biceps, unspecified arm, initial encounter (02/22/23) Physical Therapy Treatment Note PT-OP-A Visit Information Start: 02/18/23 15:37 Freq: Status: Active Protocol: Document 02/18/23 15:38 NM (Rec: 02/18/23 16:38 NM [id number]) Out-Patient Physical Therapy Visit Information Visit Information Visit Type Initial Evaluation Visit Start Time 13:45 Visit Stop Time 14:30 Total Visit Minutes 45 Visit Number 1 Evaluation Information Evaluation Date 02/18/23 PT-OP-B Current Condition Start: 02/18/23 15:37 Freq: Status: Active Protocol: Document 02/18/23 15:38 NM (Rec: 02/18/23 16:38 NM [id number]) Current Condition History of Current Condition Onset Date 12/2022 Current Complaints L arm weakness, pain with pushing/pulling, supination, kinesophobia History of Current Condition Pt was lifting in the gym at the time of the injury. He reports performing a 250# bicep curl with his L arm, which was too heavy causing his L elbow to forcefully straighten while holding the weight. The normal weight he can perform for a bicep curl is 230#. At the time of the injury, he felt a pop then a sharp pain in his L elbow; there was bruising around the L antecubital area. 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 He is currently unable to carry more than 10# or lift >10#. Prior Treatments and Tests Pt received a MRI indicating a near complete tear of his L biceps tendon near the elbow. He was referred by Dr. Alejandre. At this time, the pt is not planning on undergoing surgery to fix the L biceps tendon. Future Testing and Treatments Planned Pt is planning to follow up with another doctor for another opinion about surgery. 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 Functional Limitations- Recreation/ Pt is unable to lift weights Hobbies currently due to pain and weakness PT-OP-C Subjective Start: 02/18/23 15:37 Freq: Status: Active Protocol: Document 02/18/23 15:38 NM (Rec: 02/18/23 16:38 NM [id number]) Patient Questionnaires Quick Dash- Upper Extremity Quick Dash UE Impairment 40 to 59% Impaired (Score 40- 59) OP-PT Pain Assessment Pain Assessment Grid Paper Pain Assessment Grid Completed Yes Location L elbow Pain Location Details Anterior elbow, near the insertion of the biceps tendon Intensity 2 Scale Used Numeric (0 - 10) Description Aching,With Movement Frequency Occasional Pain Duration few seconds Pain Aggravating Factors Exercise,Lifting Other Pain Aggravating Factors Lifting >10# Pain Alleviating Factors None Patient Stated Pain Goal to lift weights and smaller objects without pain in L elbow Home Pain Medication Use Pain Medications Used No Pain Behaviors Pain Behaviors Guarding Comments Pain Comments Pt reports his worst pain was at the time of the injury (10/ 10). His baseline is 0-2/10 unless he attempts to lift anything. Current pain is 2/10 . PT-OP-J Posture/Palpation/Skin Start: 02/18/23 15:37 Freq: Status: Active Protocol: Document 02/18/23 15:38 NM (Rec: 02/18/23 16:38 NM [id number]) Posture Evaluation Position Standing Evaluation View Lateral Head/C-Spine Posture Flexed L-Spine Posture Neutral Shoulder Posture (L) Rounded,(R) Rounded Arm Posture (L) Externally Rotated,(R) Externally Rotated Palpation Assessment Location L elbow Palpation Location Antecubital fossa, near insertion of biceps tendon and flexor wad Palpation Findings Muscle Guarding,Tenderness Skin Assessment Other Assessments Skin Assessment Comments Pt exhibits some bruising in L antecubital fossa area PT-OP-K Range of Motion Start: 02/18/23 15:37 Freq: Status: Active Protocol: Document 02/18/23 15:38 NM (Rec: 02/18/23 16:38 NM [id number]) Shoulder Goniometric Range of Motion Shoulder Left Shoulder ROM WFL No Testing Position Supine Flexion 150 Abduction 150 External Rotation at 90 degrees 30 Abduction Internal Rotation 80 Right Shoulder ROM WFL No Testing Position Supine Flexion 180 Abduction 150 External Rotation at 90 degrees 65 Abduction Internal Rotation 80 Elbow/Forearm Range of Motion Elbow/Forearm Left Elbow/Forearm ROM WFL No ROM Testing Position Supine Elbow Flexion (degrees) 125 Elbow Extension (degrees) 20 Pronation (degrees) 80 Supination (degrees) 35 Comments Pain only with supination, unable to tolerate overpressure Right Elbow/Forearm ROM WFL No ROM Testing Position Supine Elbow Flexion (degrees) 120 Elbow Extension (degrees) 30 Pronation (degrees) 80 Supination (degrees) 40 Wrist Goniometric Range of Motion Wrist Left Wrist ROM WFL Yes Right Wrist ROM WFL Yes PT-OP-L Special Tests Start: 02/18/23 15:37 Freq: Status: Active Protocol: Document 02/18/23 15:38 NM (Rec: 02/18/23 16:38 NM [id number]) Special Tests Shoulder Special Tests Push-Pull Test Results Positive Comments Pain with pulling Elbow Special Tests Speed's Biceps Test Results Postive Comments Discomfort at shoulder, pain in L elbow Yergason's Biceps Test Results Positive Comments Unable to palpate insertion of biceps tendon during test PT-OP-M Strength Start: 02/18/23 15:37 Freq: Status: Active Protocol: Document 02/18/23 15:38 NM (Rec: 02/18/23 16:38 NM [id number]) Shoulder Strength Shoulder Manual Muscle Testing Left Flexion 4- Good- Extension 5 Normal Abduction (C5) 4 Good Adduction 5 Normal External Rotation 4- Good- Internal Rotation 4 Good Horizontal Abduction 4 Good Horizontal Adduction 5 Normal Right Flexion 5 Normal Extension 5 Normal Abduction (C5) 5 Normal Adduction 5 Normal External Rotation 5 Normal Internal Rotation 5 Normal Horizontal Abduction 5 Normal Horizontal Adduction 5 Normal Elbow/Forearm Strength Elbow and Forearm Manual Muscle Testing Left Flexion (C6) 4 Good Extension (C7) 5 Normal Pronation 4+ Good+ Supination 3+ Fair+ Comments Pain with resisted supination Right Flexion (C6) 5 Normal Extension (C7) 5 Normal Pronation 5 Normal Supination 5 Normal Hand Camp Recreation Specialist/Pinch Strength Hand Dominance Hand Dominance Right PT-OP-Q Treatments Start: 02/18/23 15:37 Freq: Status: Active Protocol: Document 02/18/23 15:38 NM (Rec: 02/18/23 16:38 NM [id number]) Therapeutic Exercises Sitting Exercises Isometric elbow flex + radial deviation Side left Resistance isometric 50-75% of max without pain Equipment Used table Reps/Minutes 10x2, 5 second hold Isometric supination Side left Resistance isometric 50-75% of max without pain Equipment Used hand Reps/Minutes 10x2, isometric hold 5 seconds Isometric elbow flexion Side left Resistance isometric 50-75% of max without pain Equipment Used table Reps/Minutes 10x2, isometric hold 5 seconds Standing Exercises Shoulder flexion isometric Side left Resistance isometric - 50-75% of max without pain Equipment Used wall Reps/Minutes 10x2, 5 second isometric hold 5 seconds PT-OP-T Assessment and Plan Start: 02/18/23 15:37 Freq: Status: Active Protocol: Document 02/18/23 15:38 NM (Rec: 02/18/23 16:38 NM [id number]) Physical Therapy Assessment Rehab Potential Rehabilitation Potential Good Evaluation Complexity Number of Personal Factors/Comorbidities 1-2 Number of Body Systems Impaired 1-2 Clinical Presentation at Evaluation Evolving Impairments Impairments Activity Tolerance,Functional Activities,Pain,Posture,ROM, Soft Tissue Mobility,Strength Goals Five Impairment Function Short Term Goal (STG) Pt will be able to push at least 30 pounds with 2/10 or less pain in order to perform certain aspects of his job and return to the weight room. STG Duration 03/11 Assistant Goal (LTG) Pt will be able to push at least 60 pounds with 2/10 or less pain in order to perform certain aspects of his job and return to lifting. LTG Duration 04/08 Four Impairment Strength, function, pain Short Term Goal (STG) Pt will be able to lift at least 15 pounds using only his LUE with 2/10 or less pain in order to perform certain aspects of his job. STG Duration 03/11 Shelter Goal (LTG) Pt will be able to lift at least 25 pounds using only his LUE with 2/10 or less pain in order to perform certain aspects of his job. LTG Duration 04/08 Three Impairment Strength Short Term Goal (STG) Pt will improve L shoulder flexion and external rotation strength to at least 4/5 in order to demonstrate better shoulder strength. STG Duration 03/11 Shelter Goal (LTG) Pt will improve L shoulder flexion and external rotation strength to at least 4+/5 without pain in order to demonstrate overall improvement in shoulder strength for lifting and overhead activities. LTG Duration 04/08 Two Impairment Strength Impairment Current supination strength: 3 +/5 Short Term Goal (STG) Pt will improve supination strength to 4/5 without pain to indicate improved elbow strength for functional activities. STG Duration 03/11 Assistant Goal (LTG) Pt will improve L elbow supination strength to at least 4+/5 without pain to demonstrate improved elbow strength during functional activities and to be able to perform household tasks without pain. LTG Duration 04/08 One Impairment Pain and Function Impairment Current QuickDASH 56.8% Short Term Goal (STG) Pt will improve the score of the QuickDASH by 10 points to demo improved function and quality of life. STG Duration 03/11 Shelter Goal (LTG) Pt will improve the score of the QuickDASH by 20 points to demo improved LUE function and quality of life. LTG Duration 04/08 Assessment Summary Assessment Pt is a 32 y.o. male presenting with L anterior elbow pain after a heavy weight, forced eccentric contraction of the biceps brachii during a bicep curl. Currently, he is most limited by poor range of motion and weakness in his L elbow and shoulder, particularly during supination; he is also unable to lift more than 10 pounds without pain. He presents with mild swelling and bruising near the L antecubital fossa near the insertion of the biceps tendon. Pt is currently seeking to address treating his injury conservatively, but is seeking a second opinion about possible surgical repair . Pt would benefit from a progressive tendon loading program to begin strengthening his L elbow and shoulder. Pt is a good candidate for skilled physical therapy to address impairments in strength, ROM, kinesophobia, pain management, and for return to unrestricted work activities and hobbies. Physical Therapy Plan Frequency and Duration Frequency of Treatment 2x/Week Duration of treatment (weeks) 8 Plan of Care Start Date 02/18/23 Plan of Care End Date 04/08/23 Therapeutic Interventions Therapeutic Interventions Coordination Training,Home Exercise Program,Joint Mobilizations,Manual Therapy, Neuromuscular Re-education, Patient/Caregiver Education, Soft Tissue Mobilization, Taping,Therapeutic Activities, Therapeutic Exercises Modalities Cold Pack/Ice Massage,Electric Stimulation,Hot Packs, Ultrasound Other Referrals/Consults Referrals/Consults Recommended Follow up with surgeon Next Visit Focus/Plan Next Note Type Treatment Note Next Visit Plan Begin gentle isometrics for shoulder, elbow. No stretching at this time.
--- NOTE | 2023-02-22 14:54 | PT.OTN ---
Current Diagnoses Other specified disorders of bone, upper arm (02/22/23) Strain of muscle, fascia and tendon of other parts of biceps, unspecified arm, initial encounter (02/22/23) Physical Therapy Treatment Note PT-OP-A Visit Information Start: 02/18/23 15:37 Freq: Status: Active Protocol: Document 02/22/23 14:18 NM (Rec: 02/22/23 14:49 NM [id number]) Out-Patient Physical Therapy Visit Information Visit Information Visit Type Treatment Note Visit Start Time 13:50 Visit Stop Time 14:35 Total Visit Minutes 45 Visit Number 2 Evaluation Information Evaluation Date 02/18/23 PT-OP-B Current Condition Start: 02/18/23 15:37 Freq: Status: Active Protocol: Document 02/22/23 14:53 NM (Rec: 02/22/23 14:54 NM [id number]) Current Condition History of Current Condition Onset Date 12/2022 Current Complaints L arm weakness, pain with pushing/pulling, supination, kinesophobia History of Current Condition Pt was lifting in the gym at the time of the injury. He reports performing a 50# bicep curl with his L arm, which was too heavy causing his L elbow to forcefully straighten while holding the weight. The normal weight he can perform for a bicep curl is 30#. At the time of the injury, he felt a pop then a sharp pain in his L elbow; there was bruising around the L antecubital area. 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 He is currently unable to carry more than 10# or lift > 10#. Prior Treatments and Tests Pt received a MRI indicating a near complete tear of his L biceps tendon near the elbow. He was referred by Dr. Alejandre. At this time, the pt is not planning on undergoing surgery to fix the L biceps tendon. Future Testing and Treatments Planned Pt is planning to follow up with another doctor for another opinion about surgery. PT-OP-C Subjective Start: 02/18/23 15:37 Freq: Status: Active Protocol: Document 02/22/23 14:18 NM (Rec: 02/22/23 14:49 NM [id number]) OP-PT Subjective Patient Comments Patient Comments Pt arrived a little late to session due to a doctor's appointment today. Reports that he is doing well with no pain or discomfort. Pt has been compliant with HEP and hasn't had any issues since the evaluation. He is planning to follow up with a surgeon about potential surgery in late February,. Patient Reported Progress Same PT-OP-J Posture/Palpation/Skin Start: 02/18/23 15:37 Freq: Status: Active Protocol: Document 02/18/23 15:38 NM (Rec: 02/18/23 16:38 NM [id number]) Posture Evaluation Position Standing Evaluation View Lateral Head/C-Spine Posture Flexed L-Spine Posture Neutral Shoulder Posture (L) Rounded,(R) Rounded Arm Posture (L) Externally Rotated,(R) Externally Rotated Palpation Assessment Location L elbow Palpation Location Antecubital fossa, near insertion of biceps tendon and flexor wad Palpation Findings Muscle Guarding,Tenderness Skin Assessment Other Assessments Skin Assessment Comments Pt exhibits some bruising in L antecubital fossa area PT-OP-K Range of Motion Start: 02/18/23 15:37 Freq: Status: Active Protocol: Document 02/18/23 15:38 NM (Rec: 02/18/23 16:38 NM [id number]) Shoulder Goniometric Range of Motion Shoulder Left Shoulder ROM WFL No Testing Position Supine Flexion 150 Abduction 150 External Rotation at 90 degrees 30 Abduction Internal Rotation 80 Right Shoulder ROM WFL No Testing Position Supine Flexion 180 Abduction 150 External Rotation at 90 degrees 65 Abduction Internal Rotation 80 Elbow/Forearm Range of Motion Elbow/Forearm Left Elbow/Forearm ROM WFL No ROM Testing Position Supine Elbow Flexion (degrees) 125 Elbow Extension (degrees) 20 Pronation (degrees) 80 Supination (degrees) 35 Comments Pain only with supination, unable to tolerate overpressure Right Elbow/Forearm ROM WFL No ROM Testing Position Supine Elbow Flexion (degrees) 120 Elbow Extension (degrees) 30 Pronation (degrees) 80 Supination (degrees) 40 Wrist Goniometric Range of Motion Wrist Left Wrist ROM WFL Yes Right Wrist ROM WFL Yes PT-OP-L Special Tests Start: 02/18/23 15:37 Freq: Status: Active Protocol: Document 02/18/23 15:38 NM (Rec: 02/18/23 16:38 NM [id number]) Special Tests Shoulder Special Tests Push-Pull Test Results Positive Comments Pain with pulling Elbow Special Tests Speed's Biceps Test Results Postive Comments Discomfort at shoulder, pain in L elbow Yeralesiason's Biceps Test Results Positive Comments Unable to palpate insertion of biceps tendon during test PT-OP-M Strength Start: 02/18/23 15:37 Freq: Status: Active Protocol: Document 02/18/23 15:38 NM (Rec: 02/18/23 16:38 NM [id number]) Shoulder Strength Shoulder Manual Muscle Testing Left Flexion 4- Good- Extension 5 Normal Abduction (C5) 4 Good Adduction 5 Normal External Rotation 4- Good- Internal Rotation 4 Good Horizontal Abduction 4 Good Horizontal Adduction 5 Normal Right Flexion 5 Normal Extension 5 Normal Abduction (C5) 5 Normal Adduction 5 Normal External Rotation 5 Normal Internal Rotation 5 Normal Horizontal Abduction 5 Normal Horizontal Adduction 5 Normal Elbow/Forearm Strength Elbow and Forearm Manual Muscle Testing Left Flexion (C6) 4 Good Extension (C7) 5 Normal Pronation 4+ Good+ Supination 3+ Fair+ Comments Pain with resisted supination Right Flexion (C6) 5 Normal Extension (C7) 5 Normal Pronation 5 Normal Supination 5 Normal Hand Plant Engineer/Pinch Strength Hand Dominance Hand Dominance Right PT-OP-Q Treatments Start: 02/18/23 15:37 Freq: Status: Active Protocol: Document 02/22/23 14:18 NM (Rec: 02/22/23 14:49 NM [id number]) Cardio Equipment Upper Body Ergometer (UBE) Duration (Minutes) 6 Other for warm up Therapeutic Exercises Sitting Exercises Isometric supination Side left Resistance isometric 75% of max without pain Equipment Used hand Reps/Minutes 5x30, 1 min rest between reps Comments performed at midrange, 90 deg elbow flexion Isometric elbow flexion Sitting Exercise Name 1. Supinated, 2. neutral, 3. pronated Side left Resistance isometric 75% of max without pain Equipment Used ballerina bar Reps/Minutes 5x 30 holds each, 1 min rest between reps Comments performed at midrange, 90 deg elbow flex; no pain Standing Exercises Bilateral ER + shoulder flex Side bilateral Resistance level 6 band Reps/Minutes 20 x 5 isometric + shoulder flex Comments no pain or discomfort in elbow PT-OP-T Assessment and Plan Start: 02/18/23 15:37 Freq: Status: Active Protocol: Document 02/22/23 14:18 NM (Rec: 02/22/23 14:49 NM [id number]) Physical Therapy Assessment Rehab Potential Rehabilitation Potential Good Evaluation Complexity Number of Personal Factors/Comorbidities 1-2 Number of Body Systems Impaired 1-2 Clinical Presentation at Evaluation Evolving Impairments Impairments Activity Tolerance,Functional Activities,Pain,Posture,ROM, Soft Tissue Mobility,Strength Goals Five Impairment Function Short Term Goal (STG) Pt will be able to push at least 30 pounds with 2/10 or less pain in order to perform certain aspects of his job and return to the weight room. STG Duration 03/11 Line Cleaner Goal (LTG) Pt will be able to push at least 60 pounds with 2/10 or less pain in order to perform certain aspects of his job and return to lifting. LTG Duration 04/08 Four Impairment Strength, function, pain Short Term Goal (STG) Pt will be able to lift at least 15 pounds using only his LUE with 2/10 or less pain in order to perform certain aspects of his job. STG Duration 03/11 Longterm Goal (LTG) Pt will be able to lift at least 25 pounds using only his LUE with 2/10 or less pain in order to perform certain aspects of his job. LTG Duration 04/08 Three Impairment Strength Short Term Goal (STG) Pt will improve L shoulder flexion and external rotation strength to at least 4/5 in order to demonstrate better shoulder strength. STG Duration 03/11 Line Cleaner Goal (LTG) Pt will improve L shoulder flexion and external rotation strength to at least 4+/5 without pain in order to demonstrate overall improvement in shoulder strength for lifting and overhead activities. LTG Duration 04/08 Two Impairment Strength Impairment Current supination strength: 3 +/5 Short Term Goal (STG) Pt will improve supination strength to 4/5 without pain to indicate improved elbow strength for functional activities. STG Duration 03/11 Line Cleaner Goal (LTG) Pt will improve L elbow supination strength to at least 4+/5 without pain to demonstrate improved elbow strength during functional activities and to be able to perform household tasks without pain. LTG Duration 04/08 One Impairment Pain and Function Impairment Current QuickDASH 56.8% Short Term Goal (STG) Pt will improve the score of the QuickDASH by 10 points to demo improved function and quality of life. STG Duration 03/11 Line Cleaner Goal (LTG) Pt will improve the score of the QuickDASH by 20 points to demo improved LUE function and quality of life. LTG Duration 04/08 Assessment Summary Assessment Pt tolerated treatment well with no increased pain or discomfort in L elbow or shoulder. Pt was able to successfully perform elbow flexion isometrics in supination/pronation/neutral and wrist supination in midrange at 75% of max force. If pt continues to tolerate isometrics well, then will progress to eccentric strengthening phase for elbow flexion for progressive tendon loading program. Will continue to emphasize strengthening of surrounding muscles that assist elbow flexion and supination in order to help biceps brachii compensate and assist pt in return to PLOF. Pt would benefit from skilled PT to address deficits in strength, ROM, and activity tolerance. Physical Therapy Plan Frequency and Duration Frequency of Treatment 2x/Week Duration of treatment (weeks) 8 Plan of Care Start Date 02/18/23 Plan of Care End Date 04/08/23 Therapeutic Interventions Therapeutic Interventions Coordination Training,Home Exercise Program,Joint Mobilizations,Manual Therapy, Neuromuscular Re-education, Patient/Caregiver Education, Soft Tissue Mobilization, Taping,Therapeutic Activities, Therapeutic Exercises Modalities Cold Pack/Ice Massage,Electric Stimulation,Hot Packs, Ultrasound Next Visit Focus/Plan Next Note Type Treatment Note Next Visit Plan Progress isometrics of shoulder/elbow/wrist to eccentric exercises depending on pt feedback at next visit. No stretching. Initiate and progress shoulder/elbow/wrist AROM to assist mobility
--- NOTE | 2023-02-25 15:24 | PT.OTN ---
Current Diagnoses Other specified disorders of bone, upper arm (02/25/23) Strain of muscle, fascia and tendon of other parts of biceps, unspecified arm, initial encounter (02/25/23) Physical Therapy Treatment Note PT-OP-A Visit Information Start: 02/18/23 15:37 Freq: Status: Active Protocol: Document 02/25/23 13:52 NM (Rec: 02/25/23 15:23 NM [id number]) Out-Patient Physical Therapy Visit Information Visit Information Visit Type Treatment Note Visit Start Time 13:15 Visit Stop Time 14:30 Total Visit Minutes 45 Visit Number 3 PT-OP-B Current Condition Start: 02/18/23 15:37 Freq: Status: Active Protocol: Document 02/22/23 14:53 NM (Rec: 02/22/23 14:54 NM [id number]) Current Condition History of Current Condition Onset Date 12/2022 Current Complaints L arm weakness, pain with pushing/pulling, supination, kinesophobia History of Current Condition Pt was lifting in the gym at the time of the injury. He reports performing a 50# bicep curl with his L arm, which was too heavy causing his L elbow to forcefully straighten while holding the weight. The normal weight he can perform for a bicep curl is 30#. At the time of the injury, he felt a pop then a sharp pain in his L elbow; there was bruising around the L antecubital area. 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 He is currently unable to carry more than 10# or lift > 10#. Prior Treatments and Tests Pt received a MRI indicating a near complete tear of his L biceps tendon near the elbow. He was referred by Dr. Alejandre. At this time, the pt is not planning on undergoing surgery to fix the L biceps tendon. Future Testing and Treatments Planned Pt is planning to follow up with another doctor for another opinion about surgery. PT-OP-C Subjective Start: 02/18/23 15:37 Freq: Status: Active Protocol: Document 02/25/23 13:52 NM (Rec: 02/25/23 15:23 NM [id number]) OP-PT Subjective Patient Comments Patient Comments Pt presents to clinic with no pain. Reports compliance with HEP. He is going to follow up with a doctor in Dr. Alejandre's group in a few weeks to determine if he will continue with PT or will pursue surgery . Patient Reported Progress Same PT-OP-J Posture/Palpation/Skin Start: 02/18/23 15:37 Freq: Status: Active Protocol: Document 02/18/23 15:38 NM (Rec: 02/18/23 16:38 NM [id number]) Posture Evaluation Position Standing Evaluation View Lateral Head/C-Spine Posture Flexed L-Spine Posture Neutral Shoulder Posture (L) Rounded,(R) Rounded Arm Posture (L) Externally Rotated,(R) Externally Rotated Palpation Assessment Location L elbow Palpation Location Antecubital fossa, near insertion of biceps tendon and flexor wad Palpation Findings Muscle Guarding,Tenderness Skin Assessment Other Assessments Skin Assessment Comments Pt exhibits some bruising in L antecubital fossa area PT-OP-K Range of Motion Start: 02/18/23 15:37 Freq: Status: Active Protocol: Document 02/18/23 15:38 NM (Rec: 02/18/23 16:38 NM [id number]) Shoulder Goniometric Range of Motion Shoulder Left Shoulder ROM WFL No Testing Position Supine Flexion 150 Abduction 150 External Rotation at 90 degrees 30 Abduction Internal Rotation 80 Right Shoulder ROM WFL No Testing Position Supine Flexion 180 Abduction 150 External Rotation at 90 degrees 65 Abduction Internal Rotation 80 Elbow/Forearm Range of Motion Elbow/Forearm Left Elbow/Forearm ROM WFL No ROM Testing Position Supine Elbow Flexion (degrees) 125 Elbow Extension (degrees) 20 Pronation (degrees) 80 Supination (degrees) 35 Comments Pain only with supination, unable to tolerate overpressure Right Elbow/Forearm ROM WFL No ROM Testing Position Supine Elbow Flexion (degrees) 120 Elbow Extension (degrees) 30 Pronation (degrees) 80 Supination (degrees) 40 Wrist Goniometric Range of Motion Wrist Left Wrist ROM WFL Yes Right Wrist ROM WFL Yes PT-OP-L Special Tests Start: 02/18/23 15:37 Freq: Status: Active Protocol: Document 02/18/23 15:38 NM (Rec: 02/18/23 16:38 NM [id number]) Special Tests Shoulder Special Tests Push-Pull Test Results Positive Comments Pain with pulling Elbow Special Tests Speed's Biceps Test Results Postive Comments Discomfort at shoulder, pain in L elbow Tabralesiason's Biceps Test Results Positive Comments Unable to palpate insertion of biceps tendon during test PT-OP-M Strength Start: 02/18/23 15:37 Freq: Status: Active Protocol: Document 02/18/23 15:38 NM (Rec: 02/18/23 16:38 NM [id number]) Shoulder Strength Shoulder Manual Muscle Testing Left Flexion 4- Good- Extension 5 Normal Abduction (C5) 4 Good Adduction 5 Normal External Rotation 4- Good- Internal Rotation 4 Good Horizontal Abduction 4 Good Horizontal Adduction 5 Normal Right Flexion 5 Normal Extension 5 Normal Abduction (C5) 5 Normal Adduction 5 Normal External Rotation 5 Normal Internal Rotation 5 Normal Horizontal Abduction 5 Normal Horizontal Adduction 5 Normal Elbow/Forearm Strength Elbow and Forearm Manual Muscle Testing Left Flexion (C6) 4 Good Extension (C7) 5 Normal Pronation 4+ Good+ Supination 3+ Fair+ Comments Pain with resisted supination Right Flexion (C6) 5 Normal Extension (C7) 5 Normal Pronation 5 Normal Supination 5 Normal Hand Furnace Cooler/Pinch Strength Hand Dominance Hand Dominance Right PT-OP-Q Treatments Start: 02/18/23 15:37 Freq: Status: Active Protocol: Document 02/25/23 13:52 NM (Rec: 02/25/23 15:23 NM [id number]) Cardio Equipment Upper Body Ergometer (UBE) Duration (Minutes) 6 Other for warm up; 3 min fwd, 3 min bwd Therapeutic Exercises Sitting Exercises Isometric elbow flexion Sitting Exercise Name supinated only today due to time Side left Resistance isometric 75% of max without pain Equipment Used mSnapa bar Reps/Minutes 5x45 holds ea, 1 min rest between reps Comments performed at midrange, 90 deg elbow flex; no pain Standing Exercises Supination AROM Side left Resistance 10# db Comments into supination Resisted Pronation Walk outs Standing Exercise Name isometric Side left Resistance blue tb Equipment Used dowel tied to blue tb Reps/Minutes 2x10 Comments band pulling wrist into supination, must keep wrist neutral Resisted Supination Walk outs Standing Exercise Name isometric Side left Resistance blue tb Equipment Used dowel tied to blue tb Reps/Minutes 2x10 Comments band pulling wrist into pronation, must perform supination Bilateral ER + shoulder flex Side bilateral Resistance level 6 band Reps/Minutes 20 x 5 isometric + shoulder flex Comments no pain or discomfort in elbow PT-OP-T Assessment and Plan Start: 02/18/23 15:37 Freq: Status: Active Protocol: Document 02/25/23 13:52 NM (Rec: 02/25/23 15:23 NM [id number]) Physical Therapy Assessment Rehab Potential Rehabilitation Potential Good Impairments Impairments Activity Tolerance,Functional Activities,Pain,Posture,ROM, Soft Tissue Mobility,Strength Goals Five Impairment Function Short Term Goal (STG) Pt will be able to push at least 30 pounds with 2/10 or less pain in order to perform certain aspects of his job and return to the weight room. STG Duration 03/11 Fire Fighter [place] Goal (LTG) Pt will be able to push at least 60 pounds with 2/10 or less pain in order to perform certain aspects of his job and return to lifting. LTG Duration 04/08 Four Impairment Strength, function, pain Short Term Goal (STG) Pt will be able to lift at least 15 pounds using only his LUE with 2/10 or less pain in order to perform certain aspects of his job. STG Duration 03/11 Group Home Goal (LTG) Pt will be able to lift at least 25 pounds using only his LUE with 2/10 or less pain in order to perform certain aspects of his job. LTG Duration 04/08 Three Impairment Strength Short Term Goal (STG) Pt will improve L shoulder flexion and external rotation strength to at least 4/5 in order to demonstrate better shoulder strength. STG Duration 03/11 Group Home Goal (LTG) Pt will improve L shoulder flexion and external rotation strength to at least 4+/5 without pain in order to demonstrate overall improvement in shoulder strength for lifting and overhead activities. LTG Duration 04/08 Two Impairment Strength Impairment Current supination strength: 3 +/5 Short Term Goal (STG) Pt will improve supination strength to 4/5 without pain to indicate improved elbow strength for functional activities. STG Duration 03/11 Group Home Goal (LTG) Pt will improve L elbow supination strength to at least 4+/5 without pain to demonstrate improved elbow strength during functional activities and to be able to perform household tasks without pain. LTG Duration 04/08 One Impairment Pain and Function Impairment Current QuickDASH 56.8% Short Term Goal (STG) Pt will improve the score of the QuickDASH by 10 points to demo improved function and quality of life. STG Duration 03/11 [employer] [place] Goal (LTG) Pt will improve the score of the QuickDASH by 20 points to demo improved LUE function and quality of life. LTG Duration 04/08 Assessment Summary Assessment Pt tolerated treatment well with no increased pain in L elbow. Initiated resisted supination walkouts today with blue band and a dowel; pt is able to perform without difficulty and will progress to using the cables in the next session. Pt is performing isometrics without any change in symptoms and will progress to exercises targeting eccentric loading in supination and elbow flexion next. Pt expressed multiple times today that he is nervous about progressing to heavier resistance due to a fear of pain and making the injury worse. However, pt educated on benefits of progressive loading and importance in resistance progression if pt goal is to return to lifting weights. Pt would benefit from continued skilled PT in order to address impairments in exercise endurance, L elbow strength, and ROM. Physical Therapy Plan Frequency and Duration Frequency of Treatment 2x/Week Duration of treatment (weeks) 8 Plan of Care Start Date 02/18/23 Plan of Care End Date 04/08/23 Therapeutic Interventions Therapeutic Interventions Coordination Training,Home Exercise Program,Joint Mobilizations,Manual Therapy, Neuromuscular Re-education, Patient/Caregiver Education, Soft Tissue Mobilization, Taping,Therapeutic Activities, Therapeutic Exercises Modalities Cold Pack/Ice Massage,Electric Stimulation,Hot Packs, Ultrasound Next Visit Focus/Plan Next Note Type Treatment Note Next Visit Plan Progress to elbow flex/ supination eccentric exercises . Add load (cables) for strengthening. Continue AROM.
--- NOTE | 2023-02-27 15:59 | PT.OTN ---
Current Diagnoses Other specified disorders of bone, upper arm (02/27/23) Strain of muscle, fascia and tendon of other parts of biceps, unspecified arm, initial encounter (02/27/23) Physical Therapy Treatment Note PT-OP-A Visit Information Start: 02/18/23 15:37 Freq: Status: Active Protocol: Document 02/27/23 13:48 NM (Rec: 02/27/23 14:28 NM [id number]) Out-Patient Physical Therapy Visit Information Visit Information Visit Type Treatment Note Visit Note 07/23 Visit Start Time 13:45 Visit Stop Time 14:25 Total Visit Minutes 40 Visit Number 4 Evaluation Information Evaluation Date 02/18/23 PT-OP-B Current Condition Start: 02/18/23 15:37 Freq: Status: Active Protocol: Document 02/22/23 14:53 NM (Rec: 02/22/23 14:54 NM [id number]) Current Condition History of Current Condition Onset Date 12/2022 Current Complaints L arm weakness, pain with pushing/pulling, supination, kinesophobia History of Current Condition Pt was lifting in the gym at the time of the injury. He reports performing a 50# bicep curl with his L arm, which was too heavy causing his L elbow to forcefully straighten while holding the weight. The normal weight he can perform for a bicep curl is 30#. At the time of the injury, he felt a pop then a sharp pain in his L elbow; there was bruising around the L antecubital area. 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 He is currently unable to carry more than 10# or lift > 10#. Prior Treatments and Tests Pt received a MRI indicating a near complete tear of his L biceps tendon near the elbow. He was referred by Dr. Alejandre. At this time, the pt is not planning on undergoing surgery to fix the L biceps tendon. Future Testing and Treatments Planned Pt is planning to follow up with another doctor for another opinion about surgery. PT-OP-C Subjective Start: 02/18/23 15:37 Freq: Status: Active Protocol: Document 02/27/23 13:48 NM (Rec: 02/27/23 14:28 NM [id number]) OP-PT Subjective Patient Comments Patient Comments Pt presents to clinic with no pain or change in symptoms, and he has been compliant with HEP. He is planning on going to the gym tomorrow to do his HEP. Patient Reported Progress Same PT-OP-J Posture/Palpation/Skin Start: 02/18/23 15:37 Freq: Status: Active Protocol: Document 02/18/23 15:38 NM (Rec: 02/18/23 16:38 NM [id number]) Posture Evaluation Position Standing Evaluation View Lateral Head/C-Spine Posture Flexed L-Spine Posture Neutral Shoulder Posture (L) Rounded,(R) Rounded Arm Posture (L) Externally Rotated,(R) Externally Rotated Palpation Assessment Location L elbow Palpation Location Antecubital fossa, near insertion of biceps tendon and flexor wad Palpation Findings Muscle Guarding,Tenderness Skin Assessment Other Assessments Skin Assessment Comments Pt exhibits some bruising in L antecubital fossa area PT-OP-K Range of Motion Start: 02/18/23 15:37 Freq: Status: Active Protocol: Document 02/18/23 15:38 NM (Rec: 02/18/23 16:38 NM [id number]) Shoulder Goniometric Range of Motion Shoulder Left Shoulder ROM WFL No Testing Position Supine Flexion 150 Abduction 150 External Rotation at 90 degrees 30 Abduction Internal Rotation 80 Right Shoulder ROM WFL No Testing Position Supine Flexion 180 Abduction 150 External Rotation at 90 degrees 65 Abduction Internal Rotation 80 Elbow/Forearm Range of Motion Elbow/Forearm Left Elbow/Forearm ROM WFL No ROM Testing Position Supine Elbow Flexion (degrees) 125 Elbow Extension (degrees) 20 Pronation (degrees) 80 Supination (degrees) 35 Comments Pain only with supination, unable to tolerate overpressure Right Elbow/Forearm ROM WFL No ROM Testing Position Supine Elbow Flexion (degrees) 120 Elbow Extension (degrees) 30 Pronation (degrees) 80 Supination (degrees) 40 Wrist Goniometric Range of Motion Wrist Left Wrist ROM WFL Yes Right Wrist ROM WFL Yes PT-OP-L Special Tests Start: 02/18/23 15:37 Freq: Status: Active Protocol: Document 02/18/23 15:38 NM (Rec: 02/18/23 16:38 NM [id number]) Special Tests Shoulder Special Tests Push-Pull Test Results Positive Comments Pain with pulling Elbow Special Tests Speed's Biceps Test Results Postive Comments Discomfort at shoulder, pain in L elbow Daina's Biceps Test Results Positive Comments Unable to palpate insertion of biceps tendon during test PT-OP-M Strength Start: 02/18/23 15:37 Freq: Status: Active Protocol: Document 02/18/23 15:38 NM (Rec: 02/18/23 16:38 NM [id number]) Shoulder Strength Shoulder Manual Muscle Testing Left Flexion 4- Good- Extension 5 Normal Abduction (C5) 4 Good Adduction 5 Normal External Rotation 4- Good- Internal Rotation 4 Good Horizontal Abduction 4 Good Horizontal Adduction 5 Normal Right Flexion 5 Normal Extension 5 Normal Abduction (C5) 5 Normal Adduction 5 Normal External Rotation 5 Normal Internal Rotation 5 Normal Horizontal Abduction 5 Normal Horizontal Adduction 5 Normal Elbow/Forearm Strength Elbow and Forearm Manual Muscle Testing Left Flexion (C6) 4 Good Extension (C7) 5 Normal Pronation 4+ Good+ Supination 3+ Fair+ Comments Pain with resisted supination Right Flexion (C6) 5 Normal Extension (C7) 5 Normal Pronation 5 Normal Supination 5 Normal Hand Client Experience Specialist/Pinch Strength Hand Dominance Hand Dominance Right PT-OP-Q Treatments Start: 02/18/23 15:37 Freq: Status: Active Protocol: Document 02/27/23 13:48 NM (Rec: 02/27/23 14:28 NM [id number]) Cardio Equipment Upper Body Ergometer (UBE) Duration (Minutes) 4 Other for warm up; 2 min fwd, 2 min bwd Therapeutic Exercises Sitting Exercises wrist extension Side left Resistance 5# db Reps/Minutes 3x10 wrist flexion Side left Resistance 5# Reps/Minutes 3x10 Isometric elbow flexion Sitting Exercise Name 1. supinated, 2. neutral perishable freight inspector Side left Resistance 1. L7 (~70#), 2. L6 (~60#) Equipment Used cable system Reps/Minutes 1. 4x6 with 60 rest btwn sets , 2. 4x6 with 60 rest Comments 120 dg flex to near ext; B to flex, L only for eccentric PT-OP-T Assessment and Plan Start: 02/18/23 15:37 Freq: Status: Active Protocol: Document 02/27/23 13:48 NM (Rec: 02/27/23 14:28 NM [id number]) Physical Therapy Assessment Goals Five Impairment Function Short Term Goal (STG) Pt will be able to push at least 30 pounds with 2/10 or less pain in order to perform certain aspects of his job and return to the weight room. STG Duration 03/11 Intermediate Goal (LTG) Pt will be able to push at least 60 pounds with 2/10 or less pain in order to perform certain aspects of his job and return to lifting. LTG Duration 04/08 Four Impairment Strength, function, pain Short Term Goal (STG) Pt will be able to lift at least 15 pounds using only his LUE with 2/10 or less pain in order to perform certain aspects of his job. STG Duration 03/11 Intermediate Goal (LTG) Pt will be able to lift at least 25 pounds using only his LUE with 2/10 or less pain in order to perform certain aspects of his job. LTG Duration 04/08 Three Impairment Strength Short Term Goal (STG) Pt will improve L shoulder flexion and external rotation strength to at least 4/5 in order to demonstrate better shoulder strength. STG Duration 03/11 Intermediate Goal (LTG) Pt will improve L shoulder flexion and external rotation strength to at least 4+/5 without pain in order to demonstrate overall improvement in shoulder strength for lifting and overhead activities. LTG Duration 04/08 Two Impairment Strength Impairment Current supination strength: 3 +/5 Short Term Goal (STG) Pt will improve supination strength to 4/5 without pain to indicate improved elbow strength for functional activities. STG Duration 03/11 Liability Claims Representative Goal (LTG) Pt will improve L elbow supination strength to at least 4+/5 without pain to demonstrate improved elbow strength during functional activities and to be able to perform household tasks without pain. LTG Duration 04/08 One Impairment Pain and Function Impairment Current QuickDASH 56.8% Short Term Goal (STG) Pt will improve the score of the QuickDASH by 10 points to demo improved function and quality of life. STG Duration 03/11 Liability Claims Representative Goal (LTG) Pt will improve the score of the QuickDASH by 20 points to demo improved LUE function and quality of life. LTG Duration 04/08 Assessment Summary Assessment Pt tolerated well and was notably fatigued at the end of the session. Treatment focus today on beginning elbow flexion eccentric isotonic exercises with heavy resistance as part of tendon loading program. Pt able to perform eccentric isotonic elbow flexion exercises in supination and neutral hand position for 4 sets of 6 reps at L7 (~70#, supination) L6 (~ 60#, neutral) on cables. Pt attempted to perform neutral perishable freight inspector exercise at L7 but felt to fatigued to safely continue at that resistance. He was able to tolerate a decrease to L6. No pain or discomfort reported. Pt demos good contraction of L biceps brachii and was able to control. HEP to be updated with the cable exercises which pt can perform at gym if continues to tolerate well in future sessions. Pt would benefit from skilled PT to continue with UE strengthening program to get back to PLOF. Physical Therapy Plan Frequency and Duration Frequency of Treatment 2x/Week Duration of treatment (weeks) 8 Plan of Care Start Date 02/18/23 Plan of Care End Date 04/08/23 Therapeutic Interventions Therapeutic Interventions Coordination Training,Home Exercise Program,Joint Mobilizations,Manual Therapy, Neuromuscular Re-education, Patient/Caregiver Education, Soft Tissue Mobilization, Taping,Therapeutic Activities, Therapeutic Exercises Modalities Cold Pack/Ice Massage,Electric Stimulation,Hot Packs, Ultrasound Next Visit Focus/Plan Next Note Type Treatment Note Next Visit Plan Progress to elbow flex/ supination eccentric exercises as tolerated. Add load ( cables) for strengthening. Continue AROM. Update HEP as guilherme
--- NOTE | 2023-03-04 15:37 | PT.OTN ---
Current Diagnoses Other specified disorders of bone, upper arm (03/04/23) Strain of muscle, fascia and tendon of other parts of biceps, unspecified arm, initial encounter (03/04/23) Physical Therapy Treatment Note PT-OP-A Visit Information Start: 02/18/23 15:37 Freq: Status: Active Protocol: Document 03/04/23 12:27 NM (Rec: 03/04/23 13:01 NM [id number]) Out-Patient Physical Therapy Visit Information Visit Information Visit Type Treatment Note Visit Note 5 Visit Start Time 12:15 Visit Stop Time 13:00 Total Visit Minutes 45 Visit Number 5 PT-OP-B Current Condition Start: 02/18/23 15:37 Freq: Status: Active Protocol: Document 02/22/23 14:53 NM (Rec: 02/22/23 14:54 NM [id number]) Current Condition History of Current Condition Onset Date 12/2022 Current Complaints L arm weakness, pain with pushing/pulling, supination, kinesophobia History of Current Condition Pt was lifting in the gym at the time of the injury. He reports performing a 50# bicep curl with his L arm, which was too heavy causing his L elbow to forcefully straighten while holding the weight. The normal weight he can perform for a bicep curl is 30#. At the time of the injury, he felt a pop then a sharp pain in his L elbow; there was bruising around the L antecubital area. 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 He is currently unable to carry more than 10# or lift > 10#. Prior Treatments and Tests Pt received a MRI indicating a near complete tear of his L biceps tendon near the elbow. He was referred by Dr. Alejandre. At this time, the pt is not planning on undergoing surgery to fix the L biceps tendon. Future Testing and Treatments Planned Pt is planning to follow up with another doctor for another opinion about surgery. PT-OP-C Subjective Start: 02/18/23 15:37 Freq: Status: Active Protocol: Document 03/04/23 12:27 NM (Rec: 03/04/23 13:01 NM [id number]) OP-PT Subjective Patient Comments Patient Comments Pt presents to clinic with no pain or change in symptoms. He reports mod soreness in his L biceps after last session, but it has resolved. He reports compliance with his HEP. PT-OP-J Posture/Palpation/Skin Start: 02/18/23 15:37 Freq: Status: Active Protocol: Document 02/18/23 15:38 NM (Rec: 02/18/23 16:38 NM [id number]) Posture Evaluation Position Standing Evaluation View Lateral Head/C-Spine Posture Flexed L-Spine Posture Neutral Shoulder Posture (L) Rounded,(R) Rounded Arm Posture (L) Externally Rotated,(R) Externally Rotated Palpation Assessment Location L elbow Palpation Location Antecubital fossa, near insertion of biceps tendon and flexor wad Palpation Findings Muscle Guarding,Tenderness Skin Assessment Other Assessments Skin Assessment Comments Pt exhibits some bruising in L antecubital fossa area PT-OP-K Range of Motion Start: 02/18/23 15:37 Freq: Status: Active Protocol: Document 02/18/23 15:38 NM (Rec: 02/18/23 16:38 NM [id number]) Shoulder Goniometric Range of Motion Shoulder Left Shoulder ROM WFL No Testing Position Supine Flexion 150 Abduction 150 External Rotation at 90 degrees 30 Abduction Internal Rotation 80 Right Shoulder ROM WFL No Testing Position Supine Flexion 180 Abduction 150 External Rotation at 90 degrees 65 Abduction Internal Rotation 80 Elbow/Forearm Range of Motion Elbow/Forearm Left Elbow/Forearm ROM WFL No ROM Testing Position Supine Elbow Flexion (degrees) 125 Elbow Extension (degrees) 20 Pronation (degrees) 80 Supination (degrees) 35 Comments Pain only with supination, unable to tolerate overpressure Right Elbow/Forearm ROM WFL No ROM Testing Position Supine Elbow Flexion (degrees) 120 Elbow Extension (degrees) 30 Pronation (degrees) 80 Supination (degrees) 40 Wrist Goniometric Range of Motion Wrist Left Wrist ROM WFL Yes Right Wrist ROM WFL Yes PT-OP-L Special Tests Start: 02/18/23 15:37 Freq: Status: Active Protocol: Document 02/18/23 15:38 NM (Rec: 02/18/23 16:38 NM [id number]) Special Tests Shoulder Special Tests Push-Pull Test Results Positive Comments Pain with pulling Elbow Special Tests Speed's Biceps Test Results Postive Comments Discomfort at shoulder, pain in L elbow Daina's Biceps Test Results Positive Comments Unable to palpate insertion of biceps tendon during test PT-OP-M Strength Start: 02/18/23 15:37 Freq: Status: Active Protocol: Document 02/18/23 15:38 NM (Rec: 02/18/23 16:38 NM [id number]) Shoulder Strength Shoulder Manual Muscle Testing Left Flexion 4- Good- Extension 5 Normal Abduction (C5) 4 Good Adduction 5 Normal External Rotation 4- Good- Internal Rotation 4 Good Horizontal Abduction 4 Good Horizontal Adduction 5 Normal Right Flexion 5 Normal Extension 5 Normal Abduction (C5) 5 Normal Adduction 5 Normal External Rotation 5 Normal Internal Rotation 5 Normal Horizontal Abduction 5 Normal Horizontal Adduction 5 Normal Elbow/Forearm Strength Elbow and Forearm Manual Muscle Testing Left Flexion (C6) 4 Good Extension (C7) 5 Normal Pronation 4+ Good+ Supination 3+ Fair+ Comments Pain with resisted supination Right Flexion (C6) 5 Normal Extension (C7) 5 Normal Pronation 5 Normal Supination 5 Normal Hand Panel Flow Machine Operator/Pinch Strength Hand Dominance Hand Dominance Right PT-OP-Q Treatments Start: 02/18/23 15:37 Freq: Status: Active Protocol: Document 03/04/23 12:27 NM (Rec: 03/04/23 13:01 NM [id number]) Therapeutic Exercises Sitting Exercises supination stretch Side left Equipment Used 5# db Comments pronation > active supination with stretch resisted supination Side left Resistance red therabar Reps/Minutes 2x15 Comments reports soreness in L biceps ( no pain) Shldr flex and abd stretch Sitting Exercise Name seated on stool, roll out to fwd or right with arm elev for stretch Side left Equipment Used table Reps/Minutes 2x30 wrist extension Side left Resistance 10# db Reps/Minutes 2x15 wrist flexion Side left Resistance 10# db Reps/Minutes 2x15 Standing Exercises wrist ext stretch Side left Equipment Used other hand Reps/Minutes 2x30 Comments manual assist from PT for elbow ext Shldr 90/90 to press Side left Resistance lvl 6 tb Reps/Minutes 3x15 Comments reports difficulty, but good form Bilateral ER + shoulder flex Standing Exercise Name W press > shoulder press Side bilateral Resistance lvl 6 tb Reps/Minutes 3x15 Comments no pain/discomfort, reports difficulty PT-OP-T Assessment and Plan Start: 02/18/23 15:37 Freq: Status: Active Protocol: Document 03/04/23 12:27 NM (Rec: 03/04/23 13:01 NM [id number]) Physical Therapy Assessment Goals Five Impairment Function Short Term Goal (STG) Pt will be able to push at least 30 pounds with 2/10 or less pain in order to perform certain aspects of his job and return to the weight room. STG Duration 03/11 Recordak Operator Goal (LTG) Pt will be able to push at least 60 pounds with 2/10 or less pain in order to perform certain aspects of his job and return to lifting. LTG Duration 04/08 Four Impairment Strength, function, pain Short Term Goal (STG) Pt will be able to lift at least 15 pounds using only his LUE with 2/10 or less pain in order to perform certain aspects of his job. STG Duration 03/11 Retirement Goal (LTG) Pt will be able to lift at least 25 pounds using only his LUE with 2/10 or less pain in order to perform certain aspects of his job. LTG Duration 04/08 Three Impairment Strength Short Term Goal (STG) Pt will improve L shoulder flexion and external rotation strength to at least 4/5 in order to demonstrate better shoulder strength. STG Duration 03/11 Recordak Operator Goal (LTG) Pt will improve L shoulder flexion and external rotation strength to at least 4+/5 without pain in order to demonstrate overall improvement in shoulder strength for lifting and overhead activities. LTG Duration 04/08 Two Impairment Strength Impairment Current supination strength: 3 +/5 Short Term Goal (STG) Pt will improve supination strength to 4/5 without pain to indicate improved elbow strength for functional activities. STG Duration 03/11 Retirement Goal (LTG) Pt will improve L elbow supination strength to at least 4+/5 without pain to demonstrate improved elbow strength during functional activities and to be able to perform household tasks without pain. LTG Duration 04/08 One Impairment Pain and Function Impairment Current QuickDASH 56.8% Short Term Goal (STG) Pt will improve the score of the QuickDASH by 10 points to demo improved function and quality of life. STG Duration 03/11 Recordak Operator Goal (LTG) Pt will improve the score of the QuickDASH by 20 points to demo improved LUE function and quality of life. LTG Duration 04/08 Assessment Summary Assessment Pt tolerated treatment well today. He is following up with the orthopedist on Saturday to determine what will be the next plan. Tmt today targeting surrounding joints to improve mobility and strength. Pt has good shoulder strength but decreased endurance due to inactivity; he does not have any pain in the L biceps but he does get small cramps with shoulder exercises that resolve in a few seconds. He is primarily lacking in his overall UE mobility. HEP updated to include stretch for elbow extension/supination/ pec, W shoulder press, and active supination for ROM. Pt would benefit from continued PT to address impairments in strength, ROM, and activity tolerance to return to PLOF. Physical Therapy Plan Frequency and Duration Frequency of Treatment 2x/Week Duration of treatment (weeks) 8 Plan of Care Start Date 02/18/23 Plan of Care End Date 04/08/23 Therapeutic Interventions Therapeutic Interventions Coordination Training,Home Exercise Program,Joint Mobilizations,Manual Therapy, Neuromuscular Re-education, Patient/Caregiver Education, Soft Tissue Mobilization, Taping,Therapeutic Activities, Therapeutic Exercises Modalities Cold Pack/Ice Massage,Electric Stimulation,Hot Packs, Ultrasound Next Visit Focus/Plan Next Note Type Treatment Note Next Visit Plan Progress elbow/shoulder strengthening as tolerated. Continue with UE mobility
--- NOTE | 2023-03-06 13:01 | PT.OTN ---
Current Diagnoses Other specified disorders of bone, upper arm (03/06/23) Strain of muscle, fascia and tendon of other parts of biceps, unspecified arm, initial encounter (03/06/23) Physical Therapy Treatment Note PT-OP-A Visit Information Start: 02/18/23 15:37 Freq: Status: Active Protocol: Document 03/06/23 12:03 NM (Rec: 03/06/23 12:05 NM [id number]) Out-Patient Physical Therapy Visit Information Visit Information Visit Type Treatment Note Visit Note 6 Visit Start Time 12:15 Visit Stop Time 12:56 Total Visit Minutes 41 Visit Number 6 PT-OP-B Current Condition Start: 02/18/23 15:37 Freq: Status: Active Protocol: Document 02/22/23 14:53 NM (Rec: 02/22/23 14:54 NM [id number]) Current Condition History of Current Condition Onset Date 12/2022 Current Complaints L arm weakness, pain with pushing/pulling, supination, kinesophobia History of Current Condition Pt was lifting in the gym at the time of the injury. He reports performing a 50# bicep curl with his L arm, which was too heavy causing his L elbow to forcefully straighten while holding the weight. The normal weight he can perform for a bicep curl is 30#. At the time of the injury, he felt a pop then a sharp pain in his L elbow; there was bruising around the L antecubital area. 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 He is currently unable to carry more than 10# or lift > 10#. Prior Treatments and Tests Pt received a MRI indicating a near complete tear of his L biceps tendon near the elbow. He was referred by Dr. Alejandre. At this time, the pt is not planning on undergoing surgery to fix the L biceps tendon. Future Testing and Treatments Planned Pt is planning to follow up with another doctor for another opinion about surgery. PT-OP-C Subjective Start: 02/18/23 15:37 Freq: Status: Active Protocol: Document 03/06/23 12:03 NM (Rec: 03/06/23 12:05 NM [id number]) OP-PT Subjective Patient Comments Patient Comments Pt presents to clinic with no pain or soreness. He will be going to the orthopedist for another appointment regarding his L arm on Saturday. He is compliant with his HEP. He reports that he is mentally scared of moving his L elbow in certain directions or returning to more strenuous activities due to a fear of rupture to his L distal biceps tendon. Patient Reported Progress Same PT-OP-J Posture/Palpation/Skin Start: 02/18/23 15:37 Freq: Status: Active Protocol: Document 02/18/23 15:38 NM (Rec: 02/18/23 16:38 NM [id number]) Posture Evaluation Position Standing Evaluation View Lateral Head/C-Spine Posture Flexed L-Spine Posture Neutral Shoulder Posture (L) Rounded,(R) Rounded Arm Posture (L) Externally Rotated,(R) Externally Rotated Palpation Assessment Location L elbow Palpation Location Antecubital fossa, near insertion of biceps tendon and flexor wad Palpation Findings Muscle Guarding,Tenderness Skin Assessment Other Assessments Skin Assessment Comments Pt exhibits some bruising in L antecubital fossa area PT-OP-K Range of Motion Start: 02/18/23 15:37 Freq: Status: Active Protocol: Document 02/18/23 15:38 NM (Rec: 02/18/23 16:38 NM [id number]) Shoulder Goniometric Range of Motion Shoulder Left Shoulder ROM WFL No Testing Position Supine Flexion 150 Abduction 150 External Rotation at 90 degrees 30 Abduction Internal Rotation 80 Right Shoulder ROM WFL No Testing Position Supine Flexion 180 Abduction 150 External Rotation at 90 degrees 65 Abduction Internal Rotation 80 Elbow/Forearm Range of Motion Elbow/Forearm Left Elbow/Forearm ROM WFL No ROM Testing Position Supine Elbow Flexion (degrees) 125 Elbow Extension (degrees) 20 Pronation (degrees) 80 Supination (degrees) 35 Comments Pain only with supination, unable to tolerate overpressure Right Elbow/Forearm ROM WFL No ROM Testing Position Supine Elbow Flexion (degrees) 120 Elbow Extension (degrees) 30 Pronation (degrees) 80 Supination (degrees) 40 Wrist Goniometric Range of Motion Wrist Left Wrist ROM WFL Yes Right Wrist ROM WFL Yes PT-OP-L Special Tests Start: 02/18/23 15:37 Freq: Status: Active Protocol: Document 02/18/23 15:38 NM (Rec: 02/18/23 16:38 NM [id number]) Special Tests Shoulder Special Tests Push-Pull Test Results Positive Comments Pain with pulling Elbow Special Tests Speed's Biceps Test Results Postive Comments Discomfort at shoulder, pain in L elbow Tabrcande's Biceps Test Results Positive Comments Unable to palpate insertion of biceps tendon during test PT-OP-M Strength Start: 02/18/23 15:37 Freq: Status: Active Protocol: Document 02/18/23 15:38 NM (Rec: 02/18/23 16:38 NM [id number]) Shoulder Strength Shoulder Manual Muscle Testing Left Flexion 4- Good- Extension 5 Normal Abduction (C5) 4 Good Adduction 5 Normal External Rotation 4- Good- Internal Rotation 4 Good Horizontal Abduction 4 Good Horizontal Adduction 5 Normal Right Flexion 5 Normal Extension 5 Normal Abduction (C5) 5 Normal Adduction 5 Normal External Rotation 5 Normal Internal Rotation 5 Normal Horizontal Abduction 5 Normal Horizontal Adduction 5 Normal Elbow/Forearm Strength Elbow and Forearm Manual Muscle Testing Left Flexion (C6) 4 Good Extension (C7) 5 Normal Pronation 4+ Good+ Supination 3+ Fair+ Comments Pain with resisted supination Right Flexion (C6) 5 Normal Extension (C7) 5 Normal Pronation 5 Normal Supination 5 Normal Hand Public Relations Analyst/Pinch Strength Hand Dominance Hand Dominance Right PT-OP-Q Treatments Start: 02/18/23 15:37 Freq: Status: Active Protocol: Document 03/06/23 12:03 NM (Rec: 03/06/23 12:05 NM [id number]) Cardio Equipment Upper Body Ergometer (UBE) Duration (Minutes) 4 RPM 120 Other 2 min fwd, 2 min bwd Gym Equipment Cable Column (Body Solid) Walkouts Details 1. L shldr ER, 2. L shldr IR, 3. resisted supination Resistance lvl 3 Reps/Time 1x10 (~8 ft) Therapeutic Exercises Sitting Exercises Shldr flex and abd stretch Sitting Exercise Name abd stretch in standing with dowel, shoulder flex stretch sit at table Side left Equipment Used table, dowel Reps/Minutes 2x30 ea Standing Exercises Shldr 90/90 to press Side left Resistance lvl 6 tb Reps/Minutes 3x10 Comments cues for shldr retraction/ setting into extension Bilateral ER + shoulder flex Standing Exercise Name W press > shoulder press Side bilateral Resistance lvl 6 tb Reps/Minutes 3x15 Comments no pain/discomfort, reports difficulty; cues for shldr retraction/setting PT-OP-T Assessment and Plan Start: 02/18/23 15:37 Freq: Status: Active Protocol: Document 03/06/23 12:03 NM (Rec: 03/06/23 12:05 NM [id number]) Physical Therapy Assessment Goals Five Impairment Function Short Term Goal (STG) Pt will be able to push at least 30 pounds with 2/10 or less pain in order to perform certain aspects of his job and return to the weight room. STG Duration 03/11 Prison Goal (LTG) Pt will be able to push at least 60 pounds with 2/10 or less pain in order to perform certain aspects of his job and return to lifting. LTG Duration 04/08 Four Impairment Strength, function, pain Short Term Goal (STG) Pt will be able to lift at least 15 pounds using only his LUE with 2/10 or less pain in order to perform certain aspects of his job. STG Duration 03/11 Plans Examiner Goal (LTG) Pt will be able to lift at least 25 pounds using only his LUE with 2/10 or less pain in order to perform certain aspects of his job. LTG Duration 04/08 Three Impairment Strength Short Term Goal (STG) Pt will improve L shoulder flexion and external rotation strength to at least 4/5 in order to demonstrate better shoulder strength. STG Duration 03/11 [facility] Goal (LTG) Pt will improve L shoulder flexion and external rotation strength to at least 4+/5 without pain in order to demonstrate overall improvement in shoulder strength for lifting and overhead activities. LTG Duration 04/08 Two Impairment Strength Impairment Current supination strength: 3 +/5 Short Term Goal (STG) Pt will improve supination strength to 4/5 without pain to indicate improved elbow strength for functional activities. STG Duration 03/11 [employer] Goal (LTG) Pt will improve L elbow supination strength to at least 4+/5 without pain to demonstrate improved elbow strength during functional activities and to be able to perform household tasks without pain. LTG Duration 04/08 One Impairment Pain and Function Impairment Current QuickDASH 56.8% Short Term Goal (STG) Pt will improve the score of the QuickDASH by 10 points to demo improved function and quality of life. STG Duration 03/11 [facility] Goal (LTG) Pt will improve the score of the QuickDASH by 20 points to demo improved LUE function and quality of life. LTG Duration 04/08 Assessment Summary Assessment Pt tolerated treatment well. Tmt focus today on scapular stabilization during exercises to decrease strain on L elbow and promote better overall stability for return to PLOF. Continued with shoulder strengthening and mobility to improve overall UE mechanics and to compensate for strength deficits of L biceps. Pt continues to have kinesophobia , and he expresses a fear of re-injury. He has a follow up with the orthopedic doctor this Saturday to determine the next course of action; PT will follow up for results to determine if there will be any changes to POC. Pt would benefit from skilled PT to address impairments in UE stabilization, elbow strength, UE mobility, and activity tolerance to maximize PT gains for return to PLOF. Physical Therapy Plan Frequency and Duration Frequency of Treatment 2x/Week Duration of treatment (weeks) 8 Plan of Care Start Date 02/18/23 Plan of Care End Date 04/08/23 Therapeutic Interventions Therapeutic Interventions Coordination Training,Home Exercise Program,Joint Mobilizations,Manual Therapy, Neuromuscular Re-education, Patient/Caregiver Education, Soft Tissue Mobilization, Taping,Therapeutic Activities, Therapeutic Exercises Modalities Cold Pack/Ice Massage,Electric Stimulation,Hot Packs, Ultrasound Other Referrals/Consults Referrals/Consults Recommended Follow up with surgeon Next Visit Focus/Plan Next Note Type Treatment Note Next Visit Plan Progress elbow/shoulder strengthening as tolerated. Continue with UE mobility (epifanio wrist, shoulders). Progress shoulder/elbow stabilization.
--- NOTE | 2023-03-11 15:43 | PT.OTN ---
Current Diagnoses Other specified disorders of bone, upper arm (03/11/23) Strain of muscle, fascia and tendon of other parts of biceps, unspecified arm, initial encounter (03/11/23) Physical Therapy Treatment Note PT-OP-A Visit Information Start: 02/18/23 15:37 Freq: Status: Active Protocol: Document 03/11/23 13:57 NM (Rec: 03/11/23 14:32 NM [id number]) Out-Patient Physical Therapy Visit Information Visit Information Visit Type Treatment Note Visit Note 7 Visit Start Time 13:45 Visit Stop Time 14:30 Total Visit Minutes 45 Visit Number 7 Evaluation Information Evaluation Date 02/18/23 PT-OP-B Current Condition Start: 02/18/23 15:37 Freq: Status: Active Protocol: Document 02/22/23 14:53 NM (Rec: 02/22/23 14:54 NM [id number]) Current Condition History of Current Condition Onset Date 12/2022 Current Complaints L arm weakness, pain with pushing/pulling, supination, kinesophobia History of Current Condition Pt was lifting in the gym at the time of the injury. He reports performing a 50# bicep curl with his L arm, which was too heavy causing his L elbow to forcefully straighten while holding the weight. The normal weight he can perform for a bicep curl is 30#. At the time of the injury, he felt a pop then a sharp pain in his L elbow; there was bruising around the L antecubital area. 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 He is currently unable to carry more than 10# or lift > 10#. Prior Treatments and Tests Pt received a MRI indicating a near complete tear of his L biceps tendon near the elbow. He was referred by Dr. Alejandre. At this time, the pt is not planning on undergoing surgery to fix the L biceps tendon. Future Testing and Treatments Planned Pt is planning to follow up with another doctor for another opinion about surgery. PT-OP-C Subjective Start: 02/18/23 15:37 Freq: Status: Active Protocol: Document 03/11/23 13:57 NM (Rec: 03/11/23 14:32 NM [id number]) OP-PT Subjective Patient Comments Patient Comments Pt reports no pain or stiffness. He went to the ortho this past Saturday. At this time, they are not planning to surgically repair the biceps tendon due to the location of the tear; however, they will re-evaluate in 2 months. In the meantime, ortho wants the pt to begin strengthening his elbow. PT-OP-J Posture/Palpation/Skin Start: 02/18/23 15:37 Freq: Status: Active Protocol: Document 02/18/23 15:38 NM (Rec: 02/18/23 16:38 NM [id number]) Posture Evaluation Position Standing Evaluation View Lateral Head/C-Spine Posture Flexed L-Spine Posture Neutral Shoulder Posture (L) Rounded,(R) Rounded Arm Posture (L) Externally Rotated,(R) Externally Rotated Palpation Assessment Location L elbow Palpation Location Antecubital fossa, near insertion of biceps tendon and flexor wad Palpation Findings Muscle Guarding,Tenderness Skin Assessment Other Assessments Skin Assessment Comments Pt exhibits some bruising in L antecubital fossa area PT-OP-K Range of Motion Start: 02/18/23 15:37 Freq: Status: Active Protocol: Document 02/18/23 15:38 NM (Rec: 02/18/23 16:38 NM [id number]) Shoulder Goniometric Range of Motion Shoulder Left Shoulder ROM WFL No Testing Position Supine Flexion 150 Abduction 150 External Rotation at 90 degrees 30 Abduction Internal Rotation 80 Right Shoulder ROM WFL No Testing Position Supine Flexion 180 Abduction 150 External Rotation at 90 degrees 65 Abduction Internal Rotation 80 Elbow/Forearm Range of Motion Elbow/Forearm Left Elbow/Forearm ROM WFL No ROM Testing Position Supine Elbow Flexion (degrees) 125 Elbow Extension (degrees) 20 Pronation (degrees) 80 Supination (degrees) 35 Comments Pain only with supination, unable to tolerate overpressure Right Elbow/Forearm ROM WFL No ROM Testing Position Supine Elbow Flexion (degrees) 120 Elbow Extension (degrees) 30 Pronation (degrees) 80 Supination (degrees) 40 Wrist Goniometric Range of Motion Wrist Left Wrist ROM WFL Yes Right Wrist ROM WFL Yes PT-OP-L Special Tests Start: 02/18/23 15:37 Freq: Status: Active Protocol: Document 02/18/23 15:38 NM (Rec: 02/18/23 16:38 NM [id number]) Special Tests Shoulder Special Tests Push-Pull Test Results Positive Comments Pain with pulling Elbow Special Tests Speed's Biceps Test Results Postive Comments Discomfort at shoulder, pain in L elbow Daina's Biceps Test Results Positive Comments Unable to palpate insertion of biceps tendon during test PT-OP-M Strength Start: 02/18/23 15:37 Freq: Status: Active Protocol: Document 02/18/23 15:38 NM (Rec: 02/18/23 16:38 NM [id number]) Shoulder Strength Shoulder Manual Muscle Testing Left Flexion 4- Good- Extension 5 Normal Abduction (C5) 4 Good Adduction 5 Normal External Rotation 4- Good- Internal Rotation 4 Good Horizontal Abduction 4 Good Horizontal Adduction 5 Normal Right Flexion 5 Normal Extension 5 Normal Abduction (C5) 5 Normal Adduction 5 Normal External Rotation 5 Normal Internal Rotation 5 Normal Horizontal Abduction 5 Normal Horizontal Adduction 5 Normal Elbow/Forearm Strength Elbow and Forearm Manual Muscle Testing Left Flexion (C6) 4 Good Extension (C7) 5 Normal Pronation 4+ Good+ Supination 3+ Fair+ Comments Pain with resisted supination Right Flexion (C6) 5 Normal Extension (C7) 5 Normal Pronation 5 Normal Supination 5 Normal Hand Breaker Machine Tender/Pinch Strength Hand Dominance Hand Dominance Right PT-OP-Q Treatments Start: 02/18/23 15:37 Freq: Status: Active Protocol: Document 03/11/23 13:57 NM (Rec: 03/11/23 14:32 NM [id number]) Therapeutic Exercises Sitting Exercises supination stretch Side left Equipment Used 10# db Reps/Minutes 2x30 Comments pronation > active supination with stretch resisted supination Sitting Exercise Name 1. sup with tbar on table, 2. U, 3. N Side left Resistance blue therabar Reps/Minutes 2x15 ea Comments no pain or soreness reported in L biceps Shldr flex and abd stretch Sitting Exercise Name abd with dowel standing, flex supine with dowel on table 10# Side bilateral Equipment Used dowel, 10# Reps/Minutes 5x15 ea Standing Exercises Lateral raises Side left Resistance 10 # db Reps/Minutes 2x10 Comments no pain; set scapula first for stability Plank Standing Exercise Name partial plank Side bilateral Resistance body weight Reps/Minutes 2x30 Comments to isometrically load biceps, no pain; prep for pushing motion wrist ext stretch Standing Exercise Name 1. ext, 2. also wrist flex Side left Equipment Used other hand Reps/Minutes 2x30 ea Comments manual assist at wrist ext by PT PT-OP-T Assessment and Plan Start: 02/18/23 15:37 Freq: Status: Active Protocol: Document 03/11/23 13:57 NM (Rec: 03/11/23 14:32 NM [id number]) Physical Therapy Assessment Rehab Potential Rehabilitation Potential Good Evaluation Complexity Number of Personal Factors/Comorbidities 1-2 Number of Body Systems Impaired 1-2 Clinical Presentation at Evaluation Evolving Impairments Impairments Activity Tolerance,Functional Activities,Pain,Posture,ROM, Soft Tissue Mobility,Strength Goals Five Impairment Function Short Term Goal (STG) Pt will be able to push at least 30 pounds with 2/10 or less pain in order to perform certain aspects of his job and return to the weight room. STG Duration 03/11 [facility] Goal (LTG) Pt will be able to push at least 60 pounds with 2/10 or less pain in order to perform certain aspects of his job and return to lifting. LTG Duration 04/08 Four Impairment Strength, function, pain Short Term Goal (STG) Pt will be able to lift at least 15 pounds using only his LUE with 2/10 or less pain in order to perform certain aspects of his job. STG Duration 03/11 Retail Special Event Associate Goal (LTG) Pt will be able to lift at least 25 pounds using only his LUE with 2/10 or less pain in order to perform certain aspects of his job. LTG Duration 04/08 Three Impairment Strength Short Term Goal (STG) Pt will improve L shoulder flexion and external rotation strength to at least 4/5 in order to demonstrate better shoulder strength. STG Duration 03/11 [facility] Goal (LTG) Pt will improve L shoulder flexion and external rotation strength to at least 4+/5 without pain in order to demonstrate overall improvement in shoulder strength for lifting and overhead activities. LTG Duration 04/08 Two Impairment Strength Impairment Current supination strength: 3 +/5 Short Term Goal (STG) Pt will improve supination strength to 4/5 without pain to indicate improved elbow strength for functional activities. STG Duration 03/11 [facility] Goal (LTG) Pt will improve L elbow supination strength to at least 4+/5 without pain to demonstrate improved elbow strength during functional activities and to be able to perform household tasks without pain. LTG Duration 04/08 One Impairment Pain and Function Impairment Current QuickDASH 56.8% Short Term Goal (STG) Pt will improve the score of the QuickDASH by 10 points to demo improved function and quality of life. STG Duration 03/11 Retail Special Event Associate Goal (LTG) Pt will improve the score of the QuickDASH by 20 points to demo improved LUE function and quality of life. LTG Duration 04/08 Assessment Summary Assessment Pt tolerated treatment well. Tmt today focused on promoting improved shoulder and elbow ROM, maintaining wrist supination strength, and scapular stability to decrease strain on L biceps. Pt UE mobility is comparable bilaterally, but he would benefit from further mobility training. Will progress to elbow strengthening (eccentric loading) and pushing/pulling motions. PT waiting on formal report from ortho to determine if any changes need to be made to POC; however, per conversation with pt, ortho would like pt to begin emphasizing strengthening elbow and return to PLOF as surgery is unlikely at this point. Pt would benefit from skilled PT to address deficits in UE mobility and strength in order to return to PLOF. Physical Therapy Plan Frequency and Duration Frequency of Treatment 2x/Week Duration of treatment (weeks) 8 Plan of Care Start Date 02/18/23 Plan of Care End Date 04/08/23 Therapeutic Interventions Therapeutic Interventions Coordination Training,Home Exercise Program,Joint Mobilizations,Manual Therapy, Neuromuscular Re-education, Patient/Caregiver Education, Soft Tissue Mobilization, Taping,Therapeutic Activities, Therapeutic Exercises Modalities Cold Pack/Ice Massage,Electric Stimulation,Hot Packs, Ultrasound Other Referrals/Consults Referrals/Consults Recommended Follow up with surgeon Next Visit Focus/Plan Next Note Type Treatment Note Next Visit Plan Progress elbow/shoulder strengthening as tolerated. Continue with UE mobility (epifanio wrist, shoulders). Progress shoulder/elbow stabilization.
--- NOTE | 2023-03-22 15:29 | PT.OTN ---
Current Diagnoses Other specified disorders of bone, upper arm (03/22/23) Strain of muscle, fascia and tendon of other parts of biceps, unspecified arm, initial encounter (03/22/23) Physical Therapy Treatment Note PT-OP-A Visit Information Start: 02/18/23 15:37 Freq: Status: Active Protocol: Document 03/22/23 14:34 NM (Rec: 03/22/23 15:28 NM [id number]) Out-Patient Physical Therapy Visit Information Visit Information Visit Type Treatment Note Visit Note 8 Visit Start Time 14:30 Visit Stop Time 15:15 Total Visit Minutes 45 Visit Number 8 Evaluation Information Evaluation Date 02/18/23 PT-OP-B Current Condition Start: 02/18/23 15:37 Freq: Status: Active Protocol: Document 02/22/23 14:53 NM (Rec: 02/22/23 14:54 NM [id number]) Current Condition History of Current Condition Onset Date 12/2022 Current Complaints L arm weakness, pain with pushing/pulling, supination, kinesophobia History of Current Condition Pt was lifting in the gym at the time of the injury. He reports performing a 50# bicep curl with his L arm, which was too heavy causing his L elbow to forcefully straighten while holding the weight. The normal weight he can perform for a bicep curl is 30#. At the time of the injury, he felt a pop then a sharp pain in his L elbow; there was bruising around the L antecubital area. 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 He is currently unable to carry more than 10# or lift > 10#. Prior Treatments and Tests Pt received a MRI indicating a near complete tear of his L biceps tendon near the elbow. He was referred by Dr. Alejandre. At this time, the pt is not planning on undergoing surgery to fix the L biceps tendon. Future Testing and Treatments Planned Pt is planning to follow up with another doctor for another opinion about surgery. PT-OP-C Subjective Start: 02/18/23 15:37 Freq: Status: Active Protocol: Document 03/22/23 14:34 NM (Rec: 03/22/23 15:28 NM [id number]) OP-PT Subjective Patient Comments Patient Comments Pt reports no pain or stiffness. He has had an extremely busy past week with work. He has been doing his HEP, but at a reduced frequently due to the [facility] work schedule. PT-OP-J Posture/Palpation/Skin Start: 02/18/23 15:37 Freq: Status: Active Protocol: Document 02/18/23 15:38 NM (Rec: 02/18/23 16:38 NM [id number]) Posture Evaluation Position Standing Evaluation View Lateral Head/C-Spine Posture Flexed L-Spine Posture Neutral Shoulder Posture (L) Rounded,(R) Rounded Arm Posture (L) Externally Rotated,(R) Externally Rotated Palpation Assessment Location L elbow Palpation Location Antecubital fossa, near insertion of biceps tendon and flexor wad Palpation Findings Muscle Guarding,Tenderness Skin Assessment Other Assessments Skin Assessment Comments Pt exhibits some bruising in L antecubital fossa area PT-OP-K Range of Motion Start: 02/18/23 15:37 Freq: Status: Active Protocol: Document 02/18/23 15:38 NM (Rec: 02/18/23 16:38 NM [id number]) Shoulder Goniometric Range of Motion Shoulder Left Shoulder ROM WFL No Testing Position Supine Flexion 150 Abduction 150 External Rotation at 90 degrees 30 Abduction Internal Rotation 80 Right Shoulder ROM WFL No Testing Position Supine Flexion 180 Abduction 150 External Rotation at 90 degrees 65 Abduction Internal Rotation 80 Elbow/Forearm Range of Motion Elbow/Forearm Left Elbow/Forearm ROM WFL No ROM Testing Position Supine Elbow Flexion (degrees) 125 Elbow Extension (degrees) 20 Pronation (degrees) 80 Supination (degrees) 35 Comments Pain only with supination, unable to tolerate overpressure Right Elbow/Forearm ROM WFL No ROM Testing Position Supine Elbow Flexion (degrees) 120 Elbow Extension (degrees) 30 Pronation (degrees) 80 Supination (degrees) 40 Wrist Goniometric Range of Motion Wrist Left Wrist ROM WFL Yes Right Wrist ROM WFL Yes PT-OP-L Special Tests Start: 02/18/23 15:37 Freq: Status: Active Protocol: Document 02/18/23 15:38 NM (Rec: 02/18/23 16:38 NM [id number]) Special Tests Shoulder Special Tests Push-Pull Test Results Positive Comments Pain with pulling Elbow Special Tests Speed's Biceps Test Results Postive Comments Discomfort at shoulder, pain in L elbow Tabralesiason's Biceps Test Results Positive Comments Unable to palpate insertion of biceps tendon during test PT-OP-M Strength Start: 02/18/23 15:37 Freq: Status: Active Protocol: Document 02/18/23 15:38 NM (Rec: 02/18/23 16:38 NM [id number]) Shoulder Strength Shoulder Manual Muscle Testing Left Flexion 4- Good- Extension 5 Normal Abduction (C5) 4 Good Adduction 5 Normal External Rotation 4- Good- Internal Rotation 4 Good Horizontal Abduction 4 Good Horizontal Adduction 5 Normal Right Flexion 5 Normal Extension 5 Normal Abduction (C5) 5 Normal Adduction 5 Normal External Rotation 5 Normal Internal Rotation 5 Normal Horizontal Abduction 5 Normal Horizontal Adduction 5 Normal Elbow/Forearm Strength Elbow and Forearm Manual Muscle Testing Left Flexion (C6) 4 Good Extension (C7) 5 Normal Pronation 4+ Good+ Supination 3+ Fair+ Comments Pain with resisted supination Right Flexion (C6) 5 Normal Extension (C7) 5 Normal Pronation 5 Normal Supination 5 Normal Hand Diploma Maker/Pinch Strength Hand Dominance Hand Dominance Right PT-OP-Q Treatments Start: 02/18/23 15:37 Freq: Status: Active Protocol: Document 03/22/23 14:34 NM (Rec: 03/22/23 15:28 NM [id number]) Cardio Equipment Upper Body Ergometer (UBE) Duration (Minutes) 4 RPM 120 Other 2 min fwd, 2 min bwd as warm up Gym Equipment Cable Column (Body Solid) 90/90 ER press Details L single arm Resistance L2 Reps/Time 2x10 Serratus punch Details L single arm Resistance 1st set L3, 2nd L4 Reps/Time 2x10, cues for scap protract Row Details L single arm row, standing Resistance 1st set L3, 2nd lvl 4 Reps/Time 2x10 Elbow Flex Pronated Details eccentric (B up, L down) Resistance L3 Reps/Time 3x6 Elbow Flex Supinated Details eccentric (B up, L down) Resistance L3 Reps/Time 3x6 Elbow Flex Neutral Details eccentric (B up, L down) Resistance L3 Reps/Time 3x6 Therapeutic Exercises Sitting Exercises resisted supination Sitting Exercise Name tb under foot on floor, pt pronate>supination AROM Side left Resistance level 6 dark green tb Reps/Minutes 2x10 ea Comments reports feeling it bicep but not pain Standing Exercises wrist ext stretch Standing Exercise Name 1. ext, 2. also wrist flex Side left Equipment Used other hand Reps/Minutes 2x30 ea Bilateral ER + shoulder flex Standing Exercise Name W press > shoulder press Side bilateral Resistance lvl 6 tb Reps/Minutes 2x15 Comments with scap setting first for improved stability PT-OP-T Assessment and Plan Start: 02/18/23 15:37 Freq: Status: Active Protocol: Document 03/22/23 14:34 NM (Rec: 03/22/23 15:28 NM [id number]) Physical Therapy Assessment Goals Five Impairment Function Short Term Goal (STG) Pt will be able to push at least 30 pounds with 2/10 or less pain in order to perform certain aspects of his job and return to the weight room. STG Duration 03/11 Pan Washer Hand Goal (LTG) Pt will be able to push at least 60 pounds with 2/10 or less pain in order to perform certain aspects of his job and return to lifting. LTG Duration 04/08 Four Impairment Strength, function, pain Short Term Goal (STG) Pt will be able to lift at least 15 pounds using only his LUE with 2/10 or less pain in order to perform certain aspects of his job. STG Duration 03/11 Pan Washer Hand Goal (LTG) Pt will be able to lift at least 25 pounds using only his LUE with 2/10 or less pain in order to perform certain aspects of his job. LTG Duration 04/08 Three Impairment Strength Short Term Goal (STG) Pt will improve L shoulder flexion and external rotation strength to at least 4/5 in order to demonstrate better shoulder strength. STG Duration 03/11 Longterm Goal (LTG) Pt will improve L shoulder flexion and external rotation strength to at least 4+/5 without pain in order to demonstrate overall improvement in shoulder strength for lifting and overhead activities. LTG Duration 04/08 Two Impairment Strength Impairment Current supination strength: 3 +/5 Short Term Goal (STG) Pt will improve supination strength to 4/5 without pain to indicate improved elbow strength for functional activities. STG Duration 03/11 Pan Washer Hand Goal (LTG) Pt will improve L elbow supination strength to at least 4+/5 without pain to demonstrate improved elbow strength during functional activities and to be able to perform household tasks without pain. LTG Duration 04/08 One Impairment Pain and Function Impairment Current QuickDASH 56.8% Short Term Goal (STG) Pt will improve the score of the QuickDASH by 10 points to demo improved function and quality of life. STG Duration 03/11 Pan Washer Hand Goal (LTG) Pt will improve the score of the QuickDASH by 20 points to demo improved LUE function and quality of life. LTG Duration 04/08 Assessment Summary Assessment Pt demos improvement in activity tolerance today and to progressive loading of L biceps brachii. Progressed resisted supination to lvl 6 tb (heaviest), re-initiated resisted elbow eccentrics in 3 different positions. Also initiated single arm rows, serratus punches, and 90/90 shoulder ER press. Pt able to tolerate 20-40#. He has no pain with these exercises, but he does experience cramping ( relieved by self message) and feels like he is working the muscle. Will continue to advance L elbow flex as tolerated within safe parameters to prevent re- injury. He does report a fear of returning to lifting since that is how he was injured, which PT will address in future sessions (due to time today). HEP provided: serratus press, single arm row, cable eccentric bicep curls 3 way, and resisted wrist supination. Pt would benefit from PT in order improve L supination and biceps strength, maintain LUE ROM, and for progressive exercise to return to lifting similar to PLOF. Physical Therapy Plan Frequency and Duration Frequency of Treatment 2x/Week Duration of treatment (weeks) 8 Plan of Care Start Date 02/18/23 Plan of Care End Date 04/08/23 Therapeutic Interventions Therapeutic Interventions Coordination Training,Home Exercise Program,Joint Mobilizations,Manual Therapy, Neuromuscular Re-education, Patient/Caregiver Education, Soft Tissue Mobilization, Taping,Therapeutic Activities, Therapeutic Exercises Modalities Cold Pack/Ice Massage,Electric Stimulation,Hot Packs, Ultrasound Next Visit Focus/Plan Next Note Type Treatment Note Next Visit Plan Progress elbow/shoulder strengthening as tolerated. Continue with UE mobility (epifanio wrist, shoulders). Progress shoulder/elbow stabilization. PN in 1-2 sessions
--- NOTE | 2023-03-25 14:30 | PT.OTN ---
Current Diagnoses Other specified disorders of bone, upper arm (03/25/23) Strain of muscle, fascia and tendon of other parts of biceps, unspecified arm, initial encounter (03/25/23) Physical Therapy Treatment Note PT-OP-A Visit Information Start: 02/18/23 15:37 Freq: Status: Active Protocol: Document 03/25/23 13:48 NM (Rec: 03/25/23 14:29 NM [id number]) Out-Patient Physical Therapy Visit Information Visit Information Visit Type Treatment Note Visit Note 9 Visit Start Time 13:45 Visit Stop Time 14:30 Total Visit Minutes 45 Visit Number 9 Evaluation Information Evaluation Date 02/18/23 PT-OP-B Current Condition Start: 02/18/23 15:37 Freq: Status: Active Protocol: Document 02/22/23 14:53 NM (Rec: 02/22/23 14:54 NM [id number]) Current Condition History of Current Condition Onset Date 12/2022 Current Complaints L arm weakness, pain with pushing/pulling, supination, kinesophobia History of Current Condition Pt was lifting in the gym at the time of the injury. He reports performing a 50# bicep curl with his L arm, which was too heavy causing his L elbow to forcefully straighten while holding the weight. The normal weight he can perform for a bicep curl is 30#. At the time of the injury, he felt a pop then a sharp pain in his L elbow; there was bruising around the L antecubital area. 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 He is currently unable to carry more than 10# or lift > 10#. Prior Treatments and Tests Pt received a MRI indicating a near complete tear of his L biceps tendon near the elbow. He was referred by Dr. Alejandre. At this time, the pt is not planning on undergoing surgery to fix the L biceps tendon. Future Testing and Treatments Planned Pt is planning to follow up with another doctor for another opinion about surgery. PT-OP-C Subjective Start: 02/18/23 15:37 Freq: Status: Active Protocol: Document 03/25/23 13:48 NM (Rec: 03/25/23 14:29 NM [id number]) OP-PT Subjective Patient Comments Patient Comments Pt report no pain, stiffness, or soreness after last session . He attempted the cable eccentric bicep curls at the gym and the other exercises in his HEP. He is up to 40#. PT-OP-J Posture/Palpation/Skin Start: 02/18/23 15:37 Freq: Status: Active Protocol: Document 02/18/23 15:38 NM (Rec: 02/18/23 16:38 NM [id number]) Posture Evaluation Position Standing Evaluation View Lateral Head/C-Spine Posture Flexed L-Spine Posture Neutral Shoulder Posture (L) Rounded,(R) Rounded Arm Posture (L) Externally Rotated,(R) Externally Rotated Palpation Assessment Location L elbow Palpation Location Antecubital fossa, near insertion of biceps tendon and flexor wad Palpation Findings Muscle Guarding,Tenderness Skin Assessment Other Assessments Skin Assessment Comments Pt exhibits some bruising in L antecubital fossa area PT-OP-K Range of Motion Start: 02/18/23 15:37 Freq: Status: Active Protocol: Document 02/18/23 15:38 NM (Rec: 02/18/23 16:38 NM [id number]) Shoulder Goniometric Range of Motion Shoulder Left Shoulder ROM WFL No Testing Position Supine Flexion 150 Abduction 150 External Rotation at 90 degrees 30 Abduction Internal Rotation 80 Right Shoulder ROM WFL No Testing Position Supine Flexion 180 Abduction 150 External Rotation at 90 degrees 65 Abduction Internal Rotation 80 Elbow/Forearm Range of Motion Elbow/Forearm Left Elbow/Forearm ROM WFL No ROM Testing Position Supine Elbow Flexion (degrees) 125 Elbow Extension (degrees) 20 Pronation (degrees) 80 Supination (degrees) 35 Comments Pain only with supination, unable to tolerate overpressure Right Elbow/Forearm ROM WFL No ROM Testing Position Supine Elbow Flexion (degrees) 120 Elbow Extension (degrees) 30 Pronation (degrees) 80 Supination (degrees) 40 Wrist Goniometric Range of Motion Wrist Left Wrist ROM WFL Yes Right Wrist ROM WFL Yes PT-OP-L Special Tests Start: 02/18/23 15:37 Freq: Status: Active Protocol: Document 02/18/23 15:38 NM (Rec: 02/18/23 16:38 NM [id number]) Special Tests Shoulder Special Tests Push-Pull Test Results Positive Comments Pain with pulling Elbow Special Tests Speed's Biceps Test Results Postive Comments Discomfort at shoulder, pain in L elbow Tabralesiason's Biceps Test Results Positive Comments Unable to palpate insertion of biceps tendon during test PT-OP-M Strength Start: 02/18/23 15:37 Freq: Status: Active Protocol: Document 02/18/23 15:38 NM (Rec: 02/18/23 16:38 NM [id number]) Shoulder Strength Shoulder Manual Muscle Testing Left Flexion 4- Good- Extension 5 Normal Abduction (C5) 4 Good Adduction 5 Normal External Rotation 4- Good- Internal Rotation 4 Good Horizontal Abduction 4 Good Horizontal Adduction 5 Normal Right Flexion 5 Normal Extension 5 Normal Abduction (C5) 5 Normal Adduction 5 Normal External Rotation 5 Normal Internal Rotation 5 Normal Horizontal Abduction 5 Normal Horizontal Adduction 5 Normal Elbow/Forearm Strength Elbow and Forearm Manual Muscle Testing Left Flexion (C6) 4 Good Extension (C7) 5 Normal Pronation 4+ Good+ Supination 3+ Fair+ Comments Pain with resisted supination Right Flexion (C6) 5 Normal Extension (C7) 5 Normal Pronation 5 Normal Supination 5 Normal Hand Remelter/Pinch Strength Hand Dominance Hand Dominance Right PT-OP-Q Treatments Start: 02/18/23 15:37 Freq: Status: Active Protocol: Document 03/25/23 13:48 NM (Rec: 03/25/23 14:29 NM [id number]) Cardio Equipment Upper Body Ergometer (UBE) Duration (Minutes) 5 RPM 120 Other 2.5 min fwd, 2.5 min bwd as warm up Gym Equipment Cable Column (Body Solid) Upright row Details cues for scap retraction Resistance L3 Reps/Time 2x10 Elbow Flex Pronated Details eccentric (B up, L down) Resistance L4 1st cem, Lvl 5 2nd set Reps/Time 3x8 Elbow Flex Supinated Details eccentric (B up, L down) Resistance L4 1st set, L5 2nd set Reps/Time 3x8 Elbow Flex Neutral Details eccentric (B up, L down) Resistance L4 1st set, Lvl 5 2nd set Reps/Time 3x8 Therapeutic Exercises Sitting Exercises resisted supination Sitting Exercise Name tb under foot on floor, pt pronate>supination AROM Side left Resistance level 6 dark green tb Reps/Minutes 2x10 ea Comments reports feeling it bicep but not pain Standing Exercises Shldr stretches Standing Exercise Name 1. flexion, 2. abduction Side left Reps/Minutes 2x30 Comments cues for correct execution Plank Standing Exercise Name push up Side bilateral Resistance body weight Equipment Used 1st set on knees, 2nd set on feet Reps/Minutes 2x5 Comments elbow flex to 80 deg; to begin loading biceps/triceps wrist ext stretch Standing Exercise Name 1. ext, 2. also wrist flex Side left Equipment Used wall Reps/Minutes 2x30 Other Exercises Soft Tissue Self-mobilization Other Exercise Name Upper trap Side left Equipment Used theracane Reps/Minutes 30 PT-OP-T Assessment and Plan Start: 02/18/23 15:37 Freq: Status: Active Protocol: Document 03/25/23 13:48 NM (Rec: 03/25/23 14:29 NM [id number]) Physical Therapy Assessment Goals Five Impairment Function Short Term Goal (STG) Pt will be able to push at least 30 pounds with 2/10 or less pain in order to perform certain aspects of his job and return to the weight room. STG Duration 03/11 Toll Service Observer Goal (LTG) Pt will be able to push at least 60 pounds with 2/10 or less pain in order to perform certain aspects of his job and return to lifting. LTG Duration 04/08 Four Impairment Strength, function, pain Short Term Goal (STG) Pt will be able to lift at least 15 pounds using only his LUE with 2/10 or less pain in order to perform certain aspects of his job. STG Duration 03/11 Toll Service Observer Goal (LTG) Pt will be able to lift at least 25 pounds using only his LUE with 2/10 or less pain in order to perform certain aspects of his job. LTG Duration 04/08 Three Impairment Strength Short Term Goal (STG) Pt will improve L shoulder flexion and external rotation strength to at least 4/5 in order to demonstrate better shoulder strength. STG Duration 03/11 Long-Term Goal (LTG) Pt will improve L shoulder flexion and external rotation strength to at least 4+/5 without pain in order to demonstrate overall improvement in shoulder strength for lifting and overhead activities. LTG Duration 04/08 Two Impairment Strength Impairment Current supination strength: 3 +/5 Short Term Goal (STG) Pt will improve supination strength to 4/5 without pain to indicate improved elbow strength for functional activities. STG Duration 03/11 Toll Service Observer Goal (LTG) Pt will improve L elbow supination strength to at least 4+/5 without pain to demonstrate improved elbow strength during functional activities and to be able to perform household tasks without pain. LTG Duration 04/08 One Impairment Pain and Function Impairment Current QuickDASH 56.8% Short Term Goal (STG) Pt will improve the score of the QuickDASH by 10 points to demo improved function and quality of life. STG Duration 03/11 Long-Term Goal (LTG) Pt will improve the score of the QuickDASH by 20 points to demo improved LUE function and quality of life. LTG Duration 04/08 Assessment Summary Assessment Pt demos improvement in L bicep eccentric control today. He is able to tolerate more resistance (up to lvl 5, ~50#) and is able to control the eccentric activation while maintaining shoulder setting posture for stabilization. He reports feeling soreness in his L bicep with this weight and feels that this is his limit at this time. Trialed upright row at Lvl 3 (30#), which pt tolerated well with cues for scapular retraction rather than moving into shoulder ER. Pt reports that he feels muscle engagement ( forearm, near supinator) with this activity (not painful). Also trialed full push up today on floor; pt able to perform with 80 deg elbow flex , no pain. Will continue to progress as tolerated. Pt would benefit from skilled intervention to further progress L bicep strengthening , L shoulder/elbow/wrist mobility, and to maximize supination strength to return to weight lifting similar to PLOF and maintain as much UE mobility/strength as possible due to the nature of the injury. Physical Therapy Plan Frequency and Duration Frequency of Treatment 2x/Week Duration of treatment (weeks) 8 Plan of Care Start Date 02/18/23 Plan of Care End Date 04/08/23 Therapeutic Interventions Therapeutic Interventions Coordination Training,Home Exercise Program,Joint Mobilizations,Manual Therapy, Neuromuscular Re-education, Patient/Caregiver Education, Soft Tissue Mobilization, Taping,Therapeutic Activities, Therapeutic Exercises Modalities Cold Pack/Ice Massage,Electric Stimulation,Hot Packs, Ultrasound Next Visit Focus/Plan Next Note Type Progress Note Next Visit Plan If continues to tolerate eccentrics, progress to active concentric bicep contractions . Progress shoulder/elbow stabilization.
--- NOTE | 2023-03-29 16:09 | PT.OTN ---
Current Diagnoses Other specified disorders of bone, upper arm (03/29/23) Strain of muscle, fascia and tendon of other parts of biceps, unspecified arm, initial encounter (03/29/23) Physical Therapy Treatment Note PT-OP-A Visit Information Start: 02/18/23 15:37 Freq: Status: Active Protocol: Document 03/29/23 13:50 NM (Rec: 03/29/23 14:30 NM [id number]) Out-Patient Physical Therapy Visit Information Visit Information Visit Type Progress Note Visit Note 10 Visit Start Time 13:45 Visit Stop Time 14:30 Total Visit Minutes 45 Visit Number 10 Evaluation Information Evaluation Date 02/18/23 PT-OP-B Current Condition Start: 02/18/23 15:37 Freq: Status: Active Protocol: Document 02/22/23 14:53 NM (Rec: 02/22/23 14:54 NM [id number]) Current Condition History of Current Condition Onset Date 12/2022 Current Complaints L arm weakness, pain with pushing/pulling, supination, kinesophobia History of Current Condition Pt was lifting in the gym at the time of the injury. He reports performing a 50# bicep curl with his L arm, which was too heavy causing his L elbow to forcefully straighten while holding the weight. The normal weight he can perform for a bicep curl is 30#. At the time of the injury, he felt a pop then a sharp pain in his L elbow; there was bruising around the L antecubital area. 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 He is currently unable to carry more than 10# or lift > 10#. Prior Treatments and Tests Pt received a MRI indicating a near complete tear of his L biceps tendon near the elbow. He was referred by Dr. Alejandre. At this time, the pt is not planning on undergoing surgery to fix the L biceps tendon. Future Testing and Treatments Planned Pt is planning to follow up with another doctor for another opinion about surgery. PT-OP-C Subjective Start: 02/18/23 15:37 Freq: Status: Active Protocol: Document 03/29/23 13:50 NM (Rec: 03/29/23 14:30 NM [id number]) OP-PT Subjective Patient Comments Patient Comments Pt reports that he feels like his L arm has improved since beginning PT. He has no pain, decreased cramping and twitches. He also reports improvements in his mental health regarding his injury and he is less concerned about the possibility of tearing. PT-OP-J Posture/Palpation/Skin Start: 02/18/23 15:37 Freq: Status: Active Protocol: Document 02/18/23 15:38 NM (Rec: 02/18/23 16:38 NM [id number]) Posture Evaluation Position Standing Evaluation View Lateral Head/C-Spine Posture Flexed L-Spine Posture Neutral Shoulder Posture (L) Rounded,(R) Rounded Arm Posture (L) Externally Rotated,(R) Externally Rotated Palpation Assessment Location L elbow Palpation Location Antecubital fossa, near insertion of biceps tendon and flexor wad Palpation Findings Muscle Guarding,Tenderness Skin Assessment Other Assessments Skin Assessment Comments Pt exhibits some bruising in L antecubital fossa area PT-OP-K Range of Motion Start: 02/18/23 15:37 Freq: Status: Active Protocol: Document 03/29/23 13:50 NM (Rec: 03/29/23 14:30 NM [id number]) Elbow/Forearm Range of Motion Elbow/Forearm Left Elbow Flexion (degrees) 130 Elbow Extension (degrees) 10 Pronation (degrees) 80 Supination (degrees) 50 Comments 03/29/23: no pain with supination @IE: flex: 125 deg ext: lacking 20 deg pronation: 80 deg supination: 35 deg and painful PT-OP-L Special Tests Start: 02/18/23 15:37 Freq: Status: Active Protocol: Document 02/18/23 15:38 NM (Rec: 02/18/23 16:38 NM [id number]) Special Tests Shoulder Special Tests Push-Pull Test Results Positive Comments Pain with pulling Elbow Special Tests Speed's Biceps Test Results Postive Comments Discomfort at shoulder, pain in L elbow Tabralesiason's Biceps Test Results Positive Comments Unable to palpate insertion of biceps tendon during test PT-OP-M Strength Start: 02/18/23 15:37 Freq: Status: Active Protocol: Document 03/29/23 13:50 NM (Rec: 03/29/23 14:30 NM [id number]) Shoulder Strength Shoulder Manual Muscle Testing Left Flexion 5 Normal Abduction (C5) 5 Normal External Rotation 5 Normal Elbow/Forearm Strength Elbow and Forearm Manual Muscle Testing Left Flexion (C6) 5 Normal Extension (C7) 5 Normal Pronation 5 Normal Supination 4+ Good+ Comments @ IE: flex 4/5 ext 5/5 pronation 4+/5 supination 3+/5 PT-OP-Q Treatments Start: 02/18/23 15:37 Freq: Status: Active Protocol: Document 03/29/23 13:50 NM (Rec: 03/29/23 14:30 NM [id number]) Gym Equipment Cable Column (Body Solid) Chest Press Details facing away from cables, L arm only Resistance lvl 6 (~60#) Reps/Time 1x10 Bicep Upper Cut Details arm at 90/90 deg flex, 0 abd punching up Resistance lvl 3 Reps/Time 2x10 Upright row Details cues for scap retraction Resistance L4 Reps/Time 3x10 Elbow Flex Pronated Details concentric L arm (trialed); no pain reported or discomfort Resistance lvl 3 Reps/Time 2x10 Elbow Flex Supinated Details concentric L arm (trialed); no pain reported or discomfort Resistance lvl 2 to start, then progressed to lvl 3 Reps/Time 3x10 Elbow Flex Neutral Details concentric L arm (trialed); no pain reported or discomfort Resistance lvl 3 Reps/Time 2x10 Therapeutic Exercises Standing Exercises Bucket Carrying/Lifting Standing Exercise Name 25# in bucket, pt picking up bucket from floor with arm ext > elbow flex Side left Resistance 25# Equipment Used bucket, plate weights Reps/Minutes 1x10 Comments for goal PT-OP-T Assessment and Plan Start: 02/18/23 15:37 Freq: Status: Active Protocol: Document 03/29/23 13:50 NM (Rec: 03/29/23 14:30 NM [id number]) Physical Therapy Assessment Goals Five Impairment Function Short Term Goal (STG) Pt will be able to push at least 30 pounds with 2/10 or less pain in order to perform certain aspects of his job and return to the weight room. STG Duration 03/11 Electronic Warfare Technical Goal (LTG) Pt will be able to push at least 60 pounds with 2/10 or less pain in order to perform certain aspects of his job and return to lifting. 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 LTG Duration 04/08 MET Four Impairment Strength, function, pain Short Term Goal (STG) Pt will be able to lift at least 15 pounds using only his LUE with 2/10 or less pain in order to perform certain aspects of his job. STG Duration 03/11 Skilled Nursing Goal (LTG) Pt will be able to lift at least 25 pounds using only his LUE with 2/10 or less pain in order to perform certain aspects of his job. 03/29/23: Pt able to lift 25# with LUE using weights within a bucket. Pt reports no pain with lifting. LTG Duration 04/08 MET Three Impairment Strength Short Term Goal (STG) Pt will improve L shoulder flexion and external rotation strength to at least 4/5 in order to demonstrate better shoulder strength. STG Duration 03/11 Electronic Warfare Technical Goal (LTG) Pt will improve L shoulder flexion and external rotation strength to at least 4+/5 without pain in order to demonstrate overall improvement in shoulder strength for lifting and overhead activities. 03/29/23: Pt with 5/5 L shoulder flex/ER MMT strength without pain. LTG Duration 04/08 MET Two Impairment Strength Impairment Current supination strength: 3 +/5 Short Term Goal (STG) Pt will improve supination strength to 4/5 without pain to indicate improved elbow strength for functional activities. STG Duration 03/11 Skilled Nursing Goal (LTG) Pt will improve L elbow supination strength to at least 4+/5 without pain to demonstrate improved elbow strength during functional activities and to be able to perform household tasks without pain. 03/29/23: Pt with 4+/5 supination strength MMT with no pain. LTG Duration 04/08 MET One Impairment Pain and Function Impairment Current QuickDASH 56.8% Short Term Goal (STG) Pt will improve the score of the QuickDASH by 10 points to demo improved function and quality of life. STG Duration 03/11 Electronic Warfare Technical Goal (LTG) Pt will improve the score of the QuickDASH by 20 points to demo improved LUE function and quality of life. 03/29/23: Quickdash score 12 ( 2.27% disability) LTG Duration 04/08 MET Assessment Summary Assessment Progressed to 3 way ( supination/pronation/neutral) concentric L elbow flex with lvl 3 cables (~30#) and cable L bicep upper cut exercise. 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 Pt tolerated well with no reports of pain, but reports of fatigue with repetition due to lack of use. Issued HEP with 3 way biceps and biceps upper cut for gym. Pt has been seen in clinic 10x since February 18 for a L biceps tear. Since IE, pt has improved significantly in his L shoulder/elbow strength and ROM, despite limitations with dx. He does not have full supination ROM; however, it is improved by 15 deg. He does have 4+/5 supination strength, which is also improved since IE but still limited due to the incomplete tear. Pt now is able to stabilize well using scapular setting prior to lifting, demonstrating improved body mechanics and posture. Pt has been slowly progressing from isometrics, eccentrics now to concentric elbow contraction and gradually improving his tolerance to increasing the resistance. He demos good tolerance to exercises requiring L biceps activation. He reports that he no longer has any pain, cramping with elbow flexion; however, he is still not at PLOF. Despite this, he reports that he is able to participate in all ADLs and almost all recreational activities without restriction. Pt has met all goals. PT and pt discussed extending POC for a few more session to focus more on return to lifting vs discharging at end of POC. Pt verbalized that he would like to discharge at end of POC (2 visits) with independent exercise as he is now more confident in his ability to lift weights (his main goal). PT and pt discussed having remaining sessions focus on continued safety mechanics and establishing a safe exercise program for pt to be independent with at discharge in 2 sessions. Pt would benefit from additional skilled PT to address safety, posture and body mechanics during lifting in order to decrease any remaining impairments in L arm strength, ROM in order to return to PLOF. Physical Therapy Plan Frequency and Duration Frequency of Treatment 2x/Week Duration of treatment (weeks) 8 Plan of Care Start Date 02/18/23 Plan of Care End Date 04/08/23 Therapeutic Interventions Therapeutic Interventions Coordination Training,Home Exercise Program,Joint Mobilizations,Manual Therapy, Neuromuscular Re-education, Patient/Caregiver Education, Soft Tissue Mobilization, Taping,Therapeutic Activities, Therapeutic Exercises Modalities Cold Pack/Ice Massage,Electric Stimulation,Hot Packs, Ultrasound Other Referrals/Consults Referrals/Consults Recommended Next Visit Focus/Plan Next Note Type Treatment Note Next Visit Plan Continue with return to lifting, concentric biceps strengthening. Will d/c in 2 sessions
--- NOTE | 2023-04-01 14:00 | PT-OP ANOTE ---
No show - PT called pt and left a voicemail. At last session, PT and pt discussed discharge date at 04/05 session and planned to continue with PT for 2 sessions this week; however, there may be some confusion about whether or not pt was done with PT. Pt reminded of upcoming appt on 04/05. Pt instructed to call clinic if he wants to cancel the last session or reschedule. POC ends 04/08, so 04/05 will be last session any way as pt has met all of his goals and is ready for independent exercise.
--- NOTE | 2023-04-09 12:47 | PT.OPDS ---
Current Diagnoses Other specified disorders of bone, upper arm (03/29/23) Strain of muscle, fascia and tendon of other parts of biceps, unspecified arm, initial encounter (03/29/23) Visit Care Team Role Provider Type Eduar Chen DO Family Provider Non-Staff Primary Care Provider Specialty: Internal Medicine Address: [address] [place], [address] Email: Froy Alejandre MD Attending Provider Non-Staff Referring Provider Specialty: Orthopedic Surgery Address: [address], [place], [address] Email: Visit Number Visit Number 10 Discharge Summary PT-OP-B Current Condition Start: 02/18/23 15:37 Freq: Status: Active Protocol: Document 02/22/23 14:53 NM (Rec: 02/22/23 14:54 NM [id number]) Current Condition History of Current Condition Onset Date 12/2022 Current Complaints L arm weakness, pain with pushing/pulling, supination, kinesophobia History of Current Condition Pt was lifting in the gym at the time of the injury. He reports performing a 50# bicep curl with his L arm, which was too heavy causing his L elbow to forcefully straighten while holding the weight. The normal weight he can perform for a bicep curl is 30#. At the time of the injury, he felt a pop then a sharp pain in his L elbow; there was bruising around the L antecubital area. 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 He is currently unable to carry more than 10# or lift > 10#. Prior Treatments and Tests Pt received a MRI indicating a near complete tear of his L biceps tendon near the elbow. He was referred by Dr. Alejandre. At this time, the pt is not planning on undergoing surgery to fix the L biceps tendon. Future Testing and Treatments Planned Pt is planning to follow up with another doctor for another opinion about surgery. PT-OP-C Subjective Start: 02/18/23 15:37 Freq: Status: Active Protocol: Document 03/29/23 13:50 NM (Rec: 03/29/23 14:30 NM [id number]) OP-PT Subjective Patient Comments Patient Comments Pt reports that he feels like his L arm has improved since beginning PT. He has no pain, decreased cramping and twitches. He also reports improvements in his mental health regarding his injury and he is less concerned about the possibility of tearing. PT-OP-J Posture/Palpation/Skin Start: 02/18/23 15:37 Freq: Status: Active Protocol: Document 02/18/23 15:38 NM (Rec: 02/18/23 16:38 NM [id number]) Posture Evaluation Position Standing Evaluation View Lateral Head/C-Spine Posture Flexed L-Spine Posture Neutral Shoulder Posture (L) Rounded,(R) Rounded Arm Posture (L) Externally Rotated,(R) Externally Rotated Palpation Assessment Location L elbow Palpation Location Antecubital fossa, near insertion of biceps tendon and flexor wad Palpation Findings Muscle Guarding,Tenderness Skin Assessment Other Assessments Skin Assessment Comments Pt exhibits some bruising in L antecubital fossa area PT-OP-K Range of Motion Start: 02/18/23 15:37 Freq: Status: Active Protocol: Document 03/29/23 13:50 NM (Rec: 03/29/23 14:30 NM [id number]) Elbow/Forearm Range of Motion Elbow/Forearm Left Elbow Flexion (degrees) 130 Elbow Extension (degrees) 10 Pronation (degrees) 80 Supination (degrees) 50 Comments 03/29/23: no pain with supination @IE: flex: 125 deg ext: lacking 20 deg pronation: 80 deg supination: 35 deg and painful PT-OP-L Special Tests Start: 02/18/23 15:37 Freq: Status: Active Protocol: Document 02/18/23 15:38 NM (Rec: 02/18/23 16:38 NM [id number]) Special Tests Shoulder Special Tests Push-Pull Test Results Positive Comments Pain with pulling Elbow Special Tests Speed's Biceps Test Results Postive Comments Discomfort at shoulder, pain in L elbow Yeralesiason's Biceps Test Results Positive Comments Unable to palpate insertion of biceps tendon during test PT-OP-M Strength Start: 02/18/23 15:37 Freq: Status: Active Protocol: Document 03/29/23 13:50 NM (Rec: 03/29/23 14:30 NM [id number]) Shoulder Strength Shoulder Manual Muscle Testing Left Flexion 5 Normal Abduction (C5) 5 Normal External Rotation 5 Normal Elbow/Forearm Strength Elbow and Forearm Manual Muscle Testing Left Flexion (C6) 5 Normal Extension (C7) 5 Normal Pronation 5 Normal Supination 4+ Good+ Comments @ IE: flex 4/5 ext 5/5 pronation 4+/5 supination 3+/5 PT-OP-T Assessment and Plan Start: 02/18/23 15:37 Freq: Status: Active Protocol: Document 04/05/23 15:47 NM (Rec: 04/05/23 15:59 NM [id number]) Physical Therapy Assessment Goals Five Impairment Function Short Term Goal (STG) Pt will be able to push at least 30 pounds with 2/10 or less pain in order to perform certain aspects of his job and return to the weight room. STG Duration 03/11 Sole Seamer Goal (LTG) Pt will be able to push at least 60 pounds with 2/10 or less pain in order to perform certain aspects of his job and return to lifting. 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 He reports that he has been pushing >100# at work LTG Duration 04/08 MET Four Impairment Strength, function, pain Short Term Goal (STG) Pt will be able to lift at least 15 pounds using only his LUE with 2/10 or less pain in order to perform certain aspects of his job. STG Duration 03/11 Group Home Goal (LTG) Pt will be able to lift at least 25 pounds using only his LUE with 2/10 or less pain in order to perform certain aspects of his job. 03/29/23: Pt able to lift 25# with LUE using weights within a bucket. Pt reports no pain with lifting. LTG Duration 04/08 MET Three Impairment Strength Short Term Goal (STG) Pt will improve L shoulder flexion and external rotation strength to at least 4/5 in order to demonstrate better shoulder strength. STG Duration 03/11 Sole Seamer Goal (LTG) Pt will improve L shoulder flexion and external rotation strength to at least 4+/5 without pain in order to demonstrate overall improvement in shoulder strength for lifting and overhead activities. 03/29/23: Pt with 5/5 L shoulder flex/ER MMT strength without pain. LTG Duration 04/08 MET Two Impairment Strength Impairment Current supination strength: 3 +/5 Short Term Goal (STG) Pt will improve supination strength to 4/5 without pain to indicate improved elbow strength for functional activities. STG Duration 03/11 Group Home Goal (LTG) Pt will improve L elbow supination strength to at least 4+/5 without pain to demonstrate improved elbow strength during functional activities and to be able to perform household tasks without pain. 03/29/23: Pt with 4+/5 supination strength MMT with no pain. LTG Duration 04/08 MET One Impairment Pain and Function Impairment Current QuickDASH 56.8% Short Term Goal (STG) Pt will improve the score of the QuickDASH by 10 points to demo improved function and quality of life. STG Duration 03/11 Sole Seamer Goal (LTG) Pt will improve the score of the QuickDASH by 20 points to demo improved LUE function and quality of life. 03/29/23: Quickdash score 12 ( 2.27% disability) LTG Duration 04/08 MET Progress Towards Goals Progress Towards Goals Goals Met Progress Comments 5/5 goals met. Pt able to perform all work-related and recreational activities without limitation Assessment Summary Assessment Pt has been seen in clinic 10x since 02/18/23 for a L biceps tear. Since IE, pt has improved significantly in his L shoulder/elbow strength and ROM, despite expected limitations with dx. He does not have full supination ROM; however, it is improved by 15 deg since IE and is comparable to RUE. He does have 4+/5 supination strength, which is also improved since IE but still limited overall due to the incomplete L biceps tear. All other L shoulder and elbow strength is 5/5. Pt can now demonstrate good shoulder girdle and LUE stabilization using scapular setting prior to lifting, demonstrating improved body mechanics and posture. Over tmt course, pt has slowly progressed from isometrics, eccentrics now to concentric elbow contraction and gradually improving his tolerance to increasing the load. He demos good tolerance to exercises requiring L biceps activation. He reports that he no longer has any pain , cramping with elbow flexion during any activity. He does not report any pain, discomfort, or cramping with any UE lift at this time. Pt is able to demonstrate safe and pain-free lifting mechanics during chest press, upright rows, overhead shoulder press, lateral raises , along with other major lifts . Pt not is still not at PLOF for weight lifting load. Despite this, he reports that he is able to participate in all ADLs and almost all recreational activities without restriction. He has returned to full workplace required tasks. Pt has met all PT goals. At last PN, PT and pt discussed extending POC for a few more session to focus more on return to lifting vs discharging at end of POC. However, pt verbalized that he would like to discharge at end of POC without any extensions to independent exercise as he is now more confident in his ability to lift weights and slowly self- progress to previous resistance. PT educated pt on importance of slowly progressing load and to limit any forceful eccentric biceps motion to prevent possibility of re-injury; pt verbalizes understanding. Pt missed last 2 sessions within POC due to illness. Pt will be discharged from PT to independent exercise. Instructed to follow up with ortho if there are any changes in symptoms or condition. Physical Therapy Plan Frequency and Duration Frequency of Treatment 2x/Week Duration of treatment (weeks) 8 Plan of Care Start Date 02/18/23 Plan of Care End Date 04/08/23 Therapeutic Interventions Therapeutic Interventions Coordination Training,Home Exercise Program,Joint Mobilizations,Manual Therapy, Neuromuscular Re-education, Patient/Caregiver Education, Soft Tissue Mobilization, Taping,Therapeutic Activities, Therapeutic Exercises Modalities Cold Pack/Ice Massage,Electric Stimulation,Hot Packs, Ultrasound Other Referrals/Consults Referrals/Consults Recommended Follow up with surgeon Discharge Physical Therapy Discharge Reasons Goals Met Discharge Comments Pt has met goals, POC has ended. Safe for independent exercise. Pt also requested to not extend POC or schedule more visits once POC expires Next Visit Focus/Plan Next Note Type Discharge Summary Next Visit Plan Discharge from PT services
== END 2023-04-10 14:49 | disposition home or self-care (01) ==
LOC: PHYS 13:45
PROVIDERS: Family Provider Internal Medicine; PCP Internal Medicine; Referring Provider Orthopaedic Surgery; Visit Provider Orthopaedic Surgery
DX: S46.219A Strain of muscle, fascia and tendon of other parts of biceps, unspecified arm, initial encounter (principal); M89.8X2 Other specified disorders of bone, upper arm
CPT/HCPCS: 97110; 97162